=== PATIENT | female | born 1930 | race Caucasian/White ===

== ENCOUNTER 2017-03-17 16:21 | Inpatient (IN) | payer OTHER ==
--- NOTE | ~2017-03-17 | DS ---
Discharge Summary [facility] [address] [facility] [place]. [address] NAME: RUBY RIOS : [birth year] STATUS : DIS IN PAT#: [id number] AGE: 86 ADM/REG DATE : 03/18/17 MR#: [id number] REPORT SERV DATE: 03/28/17 DICTATED BY: MAHAD RUSSELL DATE: 03/27/17 REPORT STATUS : Draft TRANSCRIBED BY: MODL DATE: 03/27/17 ADMISSION DATE: 03/18/2017 DISCHARGE DATE: 03/26/2017 DISCHARGE DIAGNOSES: 1. Severe sepsis, present on admission with lactic acidosis. Source of infection is unclear. 2. 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 3. Gallstones with negative HIDA scan. 4. Volume overload. 5. Acute kidney injury. 6. Failure to thrive. CONSULTANTS: 1. Dr. Michael Briceno of Gastroenterology. 2. Dr. Jose Mariscal of Cardiology. 3. Dr. Brandyn Hernandez, of General Surgery. 4. Dr. Nathan Schmidt, Vascular Surgery. PROCEDURES: Colonoscopy with biopsy performed on 03/20/2017. HOSPITAL COURSE: This is an 86-year-old lady who was initially admitted to the hospital with diagnosis of severe sepsis, abdominal pain, nausea, and vomiting. For details, please refer to excellent H and P by Dr. Jose Quach. In summary, the patient was admitted and was started on broad-spectrum IV antibiotics along with aggressive IV fluid resuscitation. The patient actually decompensated the first two days of hospital stay and necessitated intensive care unit stay for close monitoring. The patient also had developed GI bleed and for which patient underwent a colonoscopy. Colonoscopy showed findings consistent with ischemic colitis which was biopsy-proven. Also during her hospital stay, the patient developed what appeared to be an aberrant rhythm consistent with atrial fibrillation for which Cardiology was consulted. Unfortunately, the aberrant rhythm was never confirmed with an EKG and the patient was not ruled in for an atrial fibrillation. With aggressive IV fluid resuscitation and IV antibiotic therapy, the patient improved clinically. The patient never required any pressors or blood transfusions. The patient simply stayed in the ICU for couple of days for a close monitoring. Once the patient was out on the floor, the patient was worked up for mesenteric ischemia. The patient had an MRA of the abdomen as well as Doppler ultrasound studies on two different occasions which were both negative. The patient was still complaining of abdominal pain which was likely related to ischemic colitis. However, given the patient's initial presentation of sepsis without clear source of infection, it was felt that further investigation was warranted. The patient was found to have gallstones on one of the CT scans, thus the patient was worked up for possible gallbladder pathology. General Surgery was involved and the patient underwent HIDA scan, which was actually quite benign. At that point in time, the patient had spent about a week in the hospital with broad-spectrum antibiotics and the patient remained afebrile, hemodynamically stable, and patient's white blood cell count has remained controlled between 10 and 14. The patient's procalcitonin level also remained negative and thus broad-spectrum Discharge Summary [address] [place]. [address] NAME: RUBY RIOS : [birth year] STATUS : DIS IN PAT#: [id number] AGE: 86 ADM/REG DATE : 03/18/17 MR#: [id number] REPORT SERV DATE: 03/28/17 DICTATED BY: MAHAD RUSSELL DATE: 03/27/17 REPORT STATUS : Draft TRANSCRIBED BY: EVANS DATE: 03/27/17 antibiotic was discontinued, and the patient remained stable. Of note, the patient was worked up and ruled out for chest pneumonia as well as urinary tract infection early on during the hospital stay. General surgery suggested getting faster surgery consultation to see if the patient needs any further vascular intervention given ischemic colitis even though it may have been simply related to hypotension and dehydration that the patient initially presented with. The patient was indeed seen by Vascular Surgery who agreed and noted that she did not need any further vascular surgical intervention at this point in time. At that point in time, it was felt that the patient was stable for discharge with close outpatient followup. It was noted that the patient has actually been declining over the past few months at home even prior to admission with her advanced age. The patient was seen by Physical Therapy, who recommended the patient be discharged to a correction facility. The patient is now being discharged to [facility] to continue rehab as an outpatient. Of note, on the day of discharge, the patient was on 2 L of oxygen with stable hemodynamics. The patient's labs including CBC and BMP were completely within normal limits except for a white blood cell count of 14,000. Procalcitonin level was also negative and urinalysis was repeated and negative. The patient has been slightly volume overloaded due to aggressive fluid resuscitation towards the beginning of the hospital stay, from which the patient is diuresing well from, and the patient will continue the remainder of diuresis at [facility]. Otherwise, the patient does not have any further ongoing issues. DISPOSITION: [facility]. FOLLOWUP: 1. Please follow up with PCP in the next two to four weeks. 2. Please follow up with GI in the next two to four weeks. A total of 40 minutes spent in coordinating this patient's discharge today. DICTATED BY: Mahad Russell MD YSC/MODL Mahad Russell MD / [id number] CC: MD Óscar Germain M.D.
--- NOTE | ~2017-03-17 | CN ---
Consultation Report [facility] [address] [facility] [place] [address] NAME: RUBY RIOS : [birth year] STATUS : ADM IN PAT#: [id number] AGE: 86 ADM/REG DATE : 03/18/17 MR#: [id number] REPORT SERV DATE: 03/18/17 DICTATED BY: PEBBLES BRICENO DATE: 03/18/17 REPORT STATUS : Draft TRANSCRIBED BY: MODL DATE: 03/18/17 GI CONSULTATION DATE OF CONSULTATION: 03/18/2017 Consult was called in earlier to Dr. Michelle, who came and saw the patient and then a consult was written to my group because the patient was seen by Dr. Beatty in the past. A consult was then called into us and I got a notification at 1:19 p.m. hours that is 1319 hours. It was called in as abdominal pain and GI bleed. Nobody communicated to me about when to see the patient. I finished my work in the hospital and came by to see the patient and she appears very tachycardic at this point. She does appear pale. I have reviewed her records and her hemoglobin which was 16.5 yesterday at 1300 hours was 11.4 at 4:38 this morning and 9.1 at 12 noon. I promptly went to see the patient and the nurse told me that the patient has had five black, tarry stools. The patient definitely appears tachycardic. Reviewing the records, it also indicates that this is an upper GI bleed, as the BUN, which was 17 yesterday, is up to 30 today. I promptly talked to Dr. Cutler, who is the hospitalist on the case and explained that this most likely is a serious case of upper GI bleed and that the patient needs to be transferred to the ICU as soon as possible and to transfuse 2 units of packed cells. Yesterday's admitting notes mention the patient being in her usual state of health until the evening before the admission and then having right lower quadrant pain, developed abdominal pain with multiple episodes of projectile vomiting that originally was brownish in color, then it became green, but denied any coffee-grounds emesis or blood in the vomit. The patient was reported to have some loose stool. I have talked to the , who tells me that the patient was at [facility] about three to four weeks ago and had a bleeding ulcer, hence a clip was applied there. CT scan of the abdomen and pelvis done showed gallstones without cholecystitis. An ultrasound also shows gallstones without cholecystitis. Initially, the main concern was sepsis because of the high white count and elevated lactate. The lactate on admission was 6.8 and it is down to 1.7 at this point. MEDICAL HISTORY: Dementia, hypothyroidism, CVA, anxiety, and depression. PAST SURGICAL HISTORY: Includes multiple back surgeries, hysterectomy, appendectomy, and tonsillectomy. HOME MEDICINES: Include aspirin, Plavix, Aricept, Cymbalta, Neurontin, Synthroid, vitamin D, and vitamin C. PHYSICAL EXAMINATION: GENERAL: She is a pale-appearing alert and oriented lady, tachycardic and somewhat tachypneic. Consultation Report [address] [place]. [address] NAME: RUBY RIOS : [birth year] STATUS : ADM IN [facility]#: [id number] AGE: 86 ADM/REG DATE : 03/18/17 MR#: [id number] REPORT SERV DATE: 03/18/17 DICTATED BY: PEBBLES BRICENO DATE: 03/18/17 REPORT STATUS : Draft TRANSCRIBED BY: EVANS DATE: 03/18/17 ABDOMEN: Absolutely soft, nondistended, and nontender, and there are good bowel sounds. LUNGS: Normal. CVS: Normal. IMPRESSION: Appears to be a case of upper gastrointestinal bleed in a patient with questionable peptic ulcer disease in the past. The significant drop in H and H along with the elevated BUN all point in the direction of upper gastrointestinal bleed. The patient's condition is guarded at this point. Discussed with Dr. Cutler that the patient will need to be transferred to the ICU, the patient needs to get 2 units of packed cells NASH and put on a Protonix drip and we will follow. Concerns also addressed and discussed with the patient and . KOKI/EVANS Michael Briceno M.D. / [id number] CC: Wilton Gamino M.D. Estelle Reed MD
--- NOTE | ~2017-03-17 | HP ---
History And Physical [place] [id number] [place]. [address] NAME: RUBY RIOS : [birth year] STATUS : ADM IN [facility]#: [id number] AGE: 86 ADM/REG DATE : 03/17/17 MR#: [id number] REPORT SERV DATE: 03/18/17 DICTATED BY: SANDRA CHUN DATE: 03/17/17 REPORT STATUS : Draft TRANSCRIBED BY: MODL DATE: 03/17/17 DATE OF ADMISSION: 03/17/2017 POINT OF ENTRY: [facility] Emergency Department. CHIEF COMPLAINT: Abdominal pain, nausea, and vomiting. HISTORY OF PRESENT ILLNESS: Ms. Rios is an 86-year-old female with a history of prior cerebrovascular accidents as well as hypothyroidism, who presents to the emergency department with a one-day history of acute onset of abdominal pain with associated nausea and vomiting. The patient states that she was in her usual state of health until yesterday evening when she developed diffuse abdominal pain described as sharp and stabby in nature. When queried specifically, she reports that it is worse in the right lower quadrant. Shortly after development of the abdominal pain, she started to develop multiple episodes of projectile vomiting that originally was brownish in color and then it became green, but denied any coffee-grounds emesis or blood in the vomit. The patient denies any fevers, night sweats, or chills. Did have one loose stool this morning, but would not call it diarrhea. She denies any chest pain, shortness of breath, cough, sputum production, melena, hematochezia, hemoptysis, hematemesis, dysuria, lower extremity edema. Denies any recent sick contacts. Initial evaluation in the emergency department is notable for an initial heart rate of 123 with respirations of 24. She was afebrile. [place] [address]. Lactic acid level of 6.8. Search for infectious etiology was unremarkable. Chest x-ray was clear. Urinalysis was negative for infection. CT of the abdomen and pelvis showed gallstones, but no evidence of cholecystitis and a fluid distended stomach, but no evidence of any small bowel obstruction. She was started on empiric IV fluids and antibiotics, and admitted to the Hospitalist Service. The patient does report she had a recent upper endoscopy at [facility] in October for some abdominal pain, and was told that she had a polyp, which was removed, that was reported noncancerous as well as either had some gastrointestinal bleeding either prior to the endoscopy or as documented on the endoscopy. Detailed results of endoscopy are unclear at this time. PREVIOUS MEDICAL HISTORY: 1. Hypothyroidism. 2. Dementia. 3. Cerebrovascular accident. 4. Anxiety and depression. SURGICAL HISTORY: History And Physical [address] [address] NAME: RUBY RIOS : [birth year] STATUS : ADM IN [facility]#: [id number] AGE: 86 ADM/REG DATE : 03/17/17 MR#: [id number] REPORT SERV DATE: 03/18/17 DICTATED BY: SANDRA CHUN DATE: 03/17/17 REPORT STATUS : Draft TRANSCRIBED BY: EVANS DATE: 03/17/17 1. Multiple back surgeries. 2. Abdominal hysterectomy. 3. Appendectomy. 4. Tonsillectomy. ALLERGIES: SULFA DRUGS. HOME MEDICATIONS: 1. Vitamin C 1000 mg daily. 2. Aspirin 81 mg daily. 3. Plavix 75 mg daily. 4. Aricept 10 mg daily. 5. Cymbalta 60 mg daily. 6. Neurontin 600 mg daily. 7. Levothyroxine 125 mcg daily. 8. Vitamin D3 one tab daily. SOCIAL HISTORY: Denies any tobacco, alcohol, or illicits. Is . FAMILY MEDICAL HISTORY: Mother of old age in her mid 90s, father with non-Hodgkin's lymphoma. She is an only child. LABORATORY [place] [address], hemoglobin 16.5, hematocrit 49.7, and platelet count is 324. INR 1.0. 2. Sodium is 142, potassium 4.4, chloride 103, carbon dioxide 26, BUN 17, creatinine 1.41, glucose is 248, calcium is 9.8, protein is 7.8, albumin is 4.4, bilirubin is 0.8, ALT is 14, AST 13, alkaline phosphatase is 122. 3. Lipase is 155. 4. Lactic acid 6.8. 5. Procalcitonin is negative. 6. Urinalysis, specific gravity was 1.026 cloudy with 13 red blood cells with 4 white blood cells with no evidence of any infection. 7. Chest x-ray shows no acute cardiopulmonary abnormality. 8. EKG per my review shows sinus tachycardia, heart rate of 119. No evidence of any acute ischemia or infarction. 9. CT scan of the abdomen and pelvis shows gallstones without evidence of cholecystitis as well as extensive abdominal aortic calcifications and a fluid distended stomach, but no evidence of any small bowel obstruction. PHYSICAL EXAMINATION: VITAL SIGNS: Temperature is 98.3 degrees Fahrenheit, pulse is 123, respirations 24, saturating 93% on room air, blood pressure 194/84. On recheck, she now has blood pressure 189/59, pulse of 112. GENERAL: The patient is awake, alert, in no acute distress, resting comfortably in bed. She is a well-developed, well-nourished elderly female. is at bedside. Nontoxic appearing. History And Physical [address] [address] NAME: RUBY RIOS : [birth year] STATUS : ADM IN [facility]#: [id number] AGE: 86 ADM/REG DATE : 03/17/17 MR#: [id number] REPORT SERV DATE: 03/18/17 DICTATED BY: SANDRA CHUN DATE: 03/17/17 REPORT STATUS : Draft TRANSCRIBED BY: EVANS DATE: 03/17/17 HEENT: Atraumatic and normocephalic. Moist mucous membranes. Pupils are equal, round, reactive to light and accommodation. Extraocular eye movements intact. No scleral icterus. NECK: No jugular venous distention. No carotid bruits. CARDIAC: Tachycardic rate, regular rhythm. No murmurs, rubs, or gallops. Normal S1, S2. LUNGS: Clear to auscultation bilaterally. No wheezes, rhonchi, or crackles. ABDOMEN: Soft, hypoactive bowel sounds throughout. She is diffusely tender to palpation in all quadrants more so in the right lower quadrant as well as right upper quadrant, but negative Buckley sign and no rebound, guarding, or rigidity. EXTREMITIES: Warm and well perfused. No cyanosis, clubbing, or edema. SKIN: Warm and dry. PSYCH: Affect appropriate. NEURO: Alert and oriented x3. Cranial nerves 2 through 12 grossly intact. Speech is normal. Gait not assessed. ASSESSMENT AND PLAN: Ms. Rios is an 86-year-old female, who presents with the acute onset of diffuse abdominal pain associated with nausea and vomiting, and found to have evidence of severe sepsis of unclear etiology. PROBLEM LIST: 1. Severe sepsis. 2. Acute kidney injury. 3. Abdominal pain with nausea and vomiting. 4. Hyperglycemia. 5. Cholelithiasis. PLAN: 1. Severe sepsis. The patient meets criteria with leukocytosis, tachycardia, tachypnea, as well as elevated lactic acid level and evidence of acute kidney injury. Source is unclear at this time, as chest x-ray, urinalysis, CT of the abdomen and pelvis were all unremarkable. There is also accompanied note that procalcitonin is also negative. We will follow up blood cultures. We will place the patient empirically on broad-spectrum IV antibiotics as well as aggressive IV fluid hydration of 30 mL/kg given the patient's elevated lactic acid level. Repeat lactic acid level will be pending. Given evidence of cholelithiasis as well as abdominal pain, nausea, and vomiting, we will check an abdominal ultrasound in the morning to definitively rule out cholecystitis. 2. Acute kidney injury. Aggressive IV fluid hydration. 3. Abdominal pain, nausea, and vomiting. Unclear etiology at this time. A CT of the abdomen and pelvis was unremarkable; however, that is without IV contrast. We will check an abdominal ultrasound in the morning. The patient does not have any history of mesenteric ischemia; however, she does have a history of stroke and extensive abdominal calcifications. We will order a mesenteric arterial Doppler. Place the patient empirically on some Protonix IV b.i.d. given reports of endoscopy showing some GI bleeding back in October as well as we will try to obtain those records from [facility]. Should the patient's abdominal pain continue, may need to consult Gastroenterology. 4. Hyperglycemia, unclear at this time, may be related to underlying sepsis. Place her on some low-dose sliding scale insulin as well as check hemoglobin A1c. History And Physical [address] [place]. [address] NAME: RUBY RIOS : [birth year] STATUS : ADM IN [facility]#: [id number] AGE: 86 ADM/REG DATE : 03/17/17 MR#: [id number] REPORT SERV DATE: 03/18/17 DICTATED BY: SANDRA CHUN DATE: 05/31/17 REPORT STATUS : Draft TRANSCRIBED BY: EVANS DATE: 03/17/17 5. DVT prophylaxis. Lovenox subcu. CODE STATUS: The patient wished to be full code. JCElyssa/EVANS Sandra Chun MD / [id number] CC: Estelle Patel M.D.
--- NOTE | ~2017-03-17 | OP ---
Record Of [address] [place]. [address] NAME: RUBY RIOS : [birth year] STATUS : ADM IN [facility]#: [id number] AGE: 86 ADM/REG DATE : 03/18/17 MR#: [id number] REPORT SERV DATE: 03/20/17 DICTATED BY: LYNDON JENNINGS DATE: 03/20/17 REPORT STATUS : Draft TRANSCRIBED BY: MODL DATE: 03/20/17 DATE OF PROCEDURE: 03/20/2017 PROCEDURE: Colonoscopy with biopsy. INDICATIONS: Melena. MEDICATIONS: As per Anesthesia. CONSENT: Informed consent was obtained from the patient and her family by me prior to the procedure. Risks, benefits, and alternatives were discussed including the risk of bleeding, perforation, infection, reaction to medicine, and cardiopulmonary complications. DESCRIPTION OF PROCEDURE: After the patient was adequately sedated and placed in her left lateral decubitus position, the pediatric colonoscope was passed into the rectum and advanced under direct visualization to the cecum without difficulty. Cecal landmarks were identified and included the ileocecal valve and appendiceal orifice. The base of the cecum was well visualized. The endoscope was withdrawn with careful examination of mucosa throughout the colon including retroflexion in the rectum and careful inspection around flexures and tip deflection behind folds. Prep was adequate. The patient tolerated the procedure well. FINDINGS: 1. Small linear superficial ulcerations with surrounding erythema, patchy located within transverse and descending colon. Multiple biopsies obtained. Overall, very mild. 2. Green contents throughout, no active bleeding, and no evidence for recent bleeding. RECOMMENDATIONS: 1. Follow up biopsies. 2. Continue Protonix. 3. Monitor hematocrit and transfuse as necessary. 4. MRA of the abdomen to look for stenosis and/or clot within SMA given recent endoscopic findings and clinical presentation including recent atrial fibrillation. CC/EVANS Lyndon Jennings M.D. / [id number] CC: Estelle Patel M.D. Record Of [address] [place]. [address] NAME: RUBY RIOS : [birth year] STATUS : ADM IN PAT#: [id number] AGE: 86 ADM/REG DATE : 03/18/17 MR#: [id number] REPORT SERV DATE: 03/20/17 DICTATED BY: LYNDON JENNINGS DATE: 03/20/17 REPORT STATUS : Draft TRANSCRIBED BY: MODL DATE: 03/20/17 Randy Beatty M.D.
--- NOTE | ~2017-03-17 | CN ---
Consultation Report [facility] [address] [place]. [address] NAME: RUBY RIOS : [birth year] STATUS : ADM IN PAT#: [id number] AGE: 86 ADM/REG DATE : 03/18/17 MR#: [id number] REPORT SERV DATE: 03/19/17 DICTATED BY: SANDRA MARISCAL JR. DATE: 03/19/17 REPORT STATUS : Draft TRANSCRIBED BY: MODL DATE: 03/19/17 CARDIOLOGY CONSULTATION DATE OF CONSULTATION: 03/19/2017 REASON FOR CONSULTATION: Regarding possible atrial fibrillation. HISTORY OF PRESENT ILLNESS: 86-year-old acutely ill white female is in the medical intensive care unit after a significant GI bleed. Elevated lactates; white count 23,000; hemoglobin currently 9.5. She reported to [facility] Emergency Room with abdominal pain and projectile vomiting. She had an endoscopy at [facility] in the recent past and apparently, a polyp was treated. She is still having abdominal pain in the mid abdominal region. Vital signs are more stable now. There is no previous cardiovascular history. Initially, with pain and stress of the GI bleed, she had a regular supraventricular tachycardia at rate of 200, adenosine was given and converted the rhythm to sinus tachycardia with low-amplitude P-waves as well as multiple PACs. Definite atrial fibrillation cannot be confirmed. Other pertinent laboratory studies include a low magnesium at 1.6, a potassium of 4.3, BUN and creatinine up from 30 and 1.2 on admission to 47 and 0.9 currently. Hemoglobin dropped as low as 6.6 and is now 9.5. Initial troponin less than 0.02 and currently reported as 0.4, etc. She is not having chest pain, and this is likely secondary to previous tachycardia. ALLERGIES: TO SULFA AND STEROIDS. HOME MEDICATIONS: Include clopidogrel and aspirin with history of previous CVA. Other medications are noted. SOCIAL HISTORY: . Lives in her own home. Remote history of smoking. No alcohol. FAMILY HISTORY: Negative for premature coronary disease, mother had "heart problem." DATA: A 12/17/2014 stress nuclear study found and showed ejection fraction greater than 60% with no evidence of myocardial ischemia. Bedside echo grossly normal, report pending. PHYSICAL EXAMINATION: GENERAL: Elderly white female, currently with abdominal pain. VITAL SIGNS: Blood pressure 124/50. Pulse has ranged from 106 to 138 lately. Currently, Consultation Report [facility] [address] [place]. [address] NAME: RUBY RIOS : [birth year] STATUS : ADM IN PAT#: [id number] AGE: 86 ADM/REG DATE : 03/18/17 MR#: [id number] REPORT SERV DATE: 03/19/17 DICTATED BY: SANDRA MARISCAL JR. DATE: 03/19/17 REPORT STATUS : Draft TRANSCRIBED BY: EVANS DATE: 03/19/17 heart rate in the 80s with multiple PACs. Room air saturation 93%. HEENT: No xanthelasma. NECK: No JVD at 30 degrees. No thyromegaly, no carotid bruit. LUNGS: Clear to auscultation and percussion. COR: No thrills, heaves. Normal S1, S2. No gallop. No rub. No murmur. ABD: Mid abdominal palpable abdominal pain. EXT: Without edema or pulse deficit. MS: Back without spine or costovertebral angle tenderness. NEURO: Symmetric findings. DISCUSSION: Regular supraventricular tachycardia at rate of 200, which converted to sinus tachycardia with multiple premature atrial contractions after adenosine injection. Currently, she is in sinus rhythm with multiple premature atrial contractions. Atrial fibrillation cannot be confirmed at this point. Previously normal ejection fraction on noninvasive testing. No previous cardiac history. Amiodarone orders have already been left, and GI is waiting on a stable rhythm before performing de paz-endoscopy today. She is n.p.o. We will give her a slow loading dose of amiodarone in short-term infusion, correct electrolytes, stabilize hemodynamically. When she is more stable hemodynamically, consider switching amiodarone to a low-dose beta-simi as tolerated. Thank you for this consultation. FAY/EVANS Sandra Mariscal Jr., M.D. / [id number] CC: Estelle Patel M.D.
--- NOTE | ~2017-03-17 | EGD ---
EGD REPORT [facility] [address] [address] NAME: RUBY RIOS : [birth year] STATUS : ADM IN PAT#: [id number] AGE: 86 ADM/REG DATE : 03/18/17 MR#: [id number] REPORT SERV DATE: 03/19/17 DICTATED BY: PEBBLES SCHILLING DATE: 03/19/17 REPORT STATUS : Draft TRANSCRIBED BY: [employer] DATE: 03/19/17 Endoscopy Center Patient Name: Ruby Rios Date of : 1930 Attending MD: JUAN DAIVD SCHILLING MD Procedure Date No Time: 03/19/2017 Procedure: Small bowel enteroscopy Indications: Obscure gastrointestinal bleeding Medicines: See the Anesthesia note for documentation of the administered medications Complications: No immediate complications. Estimated blood loss: None. Procedure: Pre-Anesthesia Assessment: - ASA Grade Assessment: IV - A patient with severe systemic disease that is a constant threat to life. After obtaining informed consent, the endoscope was passed under direct vision. Throughout the procedure, the patient's blood pressure, pulse, and oxygen saturations were monitored continuously. The GIF [id number] was introduced through the mouth, and advanced to the mid-jejunum. After obtaining informed consent, the endoscope was passed under direct vision. Throughout the procedure, the patient's blood pressure, pulse, and oxygen saturations were monitored continuously.The small bowel enteroscopy was accomplished without difficulty. The patient tolerated the procedure well. Findings: Many non-bleeding \F\linear\F\ jejunal ulcers with pigmented material were found at 100. The largest lesion was 4 mm in largest dimension. None of these ulcers were actively bleeding. No blood seen in the jejunal lumen There was no evidence of significant pathology in the entire examined duodenum. The esophagus was normal. The stomach was normal. Impression: - Jejunal ulcer. - Normal examined duodenum. - Normal esophagus. - Normal stomach. - Patient was initaly was having melena and then maroon blood, however no bleeding site was identified as far as I could pass the pediatric colonoscope (100 cms beyond the pylorus) OTHER - I am concerned that there is likely a small bowel EGD REPORT [address] [address] NAME: RUBY RIOS : [birth year] STATUS : ADM IN PAT#: [id number] AGE: 86 ADM/REG DATE : 03/18/17 MR#: [id number] REPORT SERV DATE: 03/19/17 DICTATED BY: PEBBLES SCHILLING DATE: 03/19/17 REPORT STATUS : Draft TRANSCRIBED BY: [employer] DATE: 03/19/17 ulcer beyond the reach of my scope that could be bleeding (BUN elevated with a normal craetinen) or this could be a colonic bleed Recommendation: - Colonoscopy for tomorrow - I have discussed findings with patient's and with Dr Lauren. Plan is to give 2 units PRBC now and keep patient stable. Prep for a colonoscopy. If needed may need to have an arteriogram tonight. I am off call now and all has been discussed also with Dr Sebastian Jennings welder explosion from now to Wednesday morning Procedure Code(s): --- Professional --- 84666, Small intestinal endoscopy, enteroscopy beyond second portion of duodenum, not including ileum; diagnostic, with or without collection of specimen(s) by brushing or washing (separate procedure) Diagnosis Code(s): --- Professional --- K28.9, Gastrojejunal ulcer, unspecified as acute or chronic, without hemorrhage or perforation K92.2, Gastrointestinal hemorrhage, unspecified CPT copyright 2013 [employer]. All rights reserved. The codes documented in this report are preliminary and upon chef de partie review may be revised to meet current compliance requirements. JUAN DAVID SCHILLING MD 03/19/2017 6:25 PM This report has been signed electronically. Number of Addenda: 0 Note Initiated On: 03/19/2017 5:11 PM [address] [address]
--- NOTE | ~2017-03-17 | CN ---
Consultation Report [facility] [address] [place]. [address] NAME: RUBY RIOS : [birth year] STATUS : ADM IN PAT#: [id number] AGE: 86 ADM/REG DATE : 03/18/17 MR#: [id number] REPORT SERV DATE: 03/26/17 DICTATED BY: NATHAN SCHMIDT DATE: 03/26/17 REPORT STATUS : Draft TRANSCRIBED BY: EVANS DATE: 03/26/17 CONSULTATION NOTE DATE OF CONSULTATION: 03/25/2017 REASON FOR CONSULTATION: Evaluation for mesenteric ischemia. BRIEF HISTORY: The patient is an 86-year-old female with past medical history significant for stroke, hypothyroidism, remote tobacco abuse, and some dementia who was admitted to the hospital with abdominal pain, nausea, and vomiting. She was found to have a gastrointestinal hemorrhage and was thought to be ischemic ulcerations. She may have had a component of ischemic colitis, with a presenting lactic acidosis and leukocytosis. She was managed medically and Dr. Sharif has been involved in her care. She has had no need for surgical intervention. In her workup, she underwent many neurovascular studies that came back unremarkable. Nonetheless, the patient's family insisted that she have vascular evaluation. The patient denies any complaints now. She has been eating better. She said that she is almost ready to leave the hospital. She denies any prior problems with eating, drinking, or with her bowel movements. She denies any postprandial abdominal pain or cramping. She denies any unintended weight loss. She has had some blood in her stool. PAST MEDICAL HISTORY: As above. PAST SURGICAL HISTORY: Includes multiple back surgeries, hysterectomy, appendectomy, tonsillectomy, rectocele and cystocele repairs. SOCIAL HISTORY: She has remote history of tobacco abuse. She denies any alcohol or drug use. She is . ALLERGIES: SULFA DRUGS. MEDICATIONS: Documented on the chart and were reviewed. FAMILY HISTORY: Noncontributory. REVIEW OF SYSTEMS: A complete review of systems was performed and is negative with the exception of the aforementioned findings. PHYSICAL EXAMINATION: VITAL SIGNS: Documented on the chart and were reviewed. GENERAL: The patient is awake, alert, oriented, in no apparent distress. HEAD AND NECK: Her head and neck examination is benign without any carotid bruits. HEART: Regular rate and rhythm. LUNGS: Clear. Consultation Report [facility] [address] [place]. [address] NAME: RUBY RIOS : [birth year] STATUS : ADM IN PAT#: [id number] AGE: 86 ADM/REG DATE : 03/18/17 MR#: [id number] REPORT SERV DATE: 03/26/17 DICTATED BY: NATHAN SCHMIDT DATE: 03/26/17 REPORT STATUS : Draft TRANSCRIBED BY: MODKaye DATE: 03/26/17 ABDOMEN: Soft, nontender, and nondistended with a nonaneurysmal aorta. She has a normal complement of upper extremity pulses without any significant edema or ischemic ulcerations. She has palpable femoral pulses. Her feet are pink and warm. She has no significant edema or ischemic ulcerations. NEUROLOGICAL: Reveals no new focal neurologic deficits. MUSCULOSKELETAL: Otherwise, benign. LABORATORY DATA: Her laboratory investigations previously demonstrated a lactic acidosis, but this has resolved. Her leukocytosis has improved to 14,000. It had normalized at one point, but has actually gone up. She had anemia earlier during her hospitalization, but this has improved. She had a mesenteric duplex that was unremarkable. She also had an MRA of her abdomen that demonstrated no significant mesenteric vascular disease. ASSESSMENT AND PLAN: It looks like this lady had dehydration and likely secondary ischemia. I do not think that she has any significant mesenteric vascular disease and needs intervention. I talked to her extensively about this. She expressed understanding. I will see her back on an as-needed basis. OUTDOOR ADVENTURE INSTRUCTOR/EVANS Nathan Schmidt M.D. / [id number] CC: MD Óscar Germain M.D.
--- NOTE | ~2017-03-17 | CN ---
Consultation Report [facility] [address] [place]. [address] NAME: RUBY RIOS : [birth year] STATUS : ADM IN [facility]#: [id number] AGE: 86 ADM/REG DATE : 03/18/17 MR#: [id number] REPORT SERV DATE: 03/23/17 DICTATED BY: JAYY SHARIF DATE: 03/22/17 REPORT STATUS : Draft TRANSCRIBED BY: MODL DATE: 03/22/17 SURGERY CONSULT NOTE DATE OF CONSULTATION: 03/22/2017 REASON FOR CONSULTATION: Abdominal pain. HISTORY OF PRESENT ILLNESS: This is an 86-year-old female who presented on 03/18/2017 with acute onset of abdominal pain, nausea, and vomiting that has been present for two days prior. The patient was severely dehydrated and appeared to be septic at this time. The patient was admitted to the hospital and started on aggressive fluid resuscitation and antibiotics. Initially during her hospital course, the patient developed worsening black melanotic stools and evidence of GI bleed. The patient received transfusions and underwent upper and lower scope which showed jejunal ulcerations consistent with ischemia and transverse and descending colon ulcerations also consistent with ischemia. The patient stayed in the Intensive Care Unit and was treated for SVT, but did well and was transferred to the floor. The patient still had persistent abdominal pain in the lower quadrants and the right upper quadrant. The patient had multiple imaging modalities including ultrasound which showed cholelithiasis, mesenteric Duplex, which showed no elevated velocities or stenosis within the SMA, DAVID, or celiac, and MRA which showed patent mesenteric vessels and no other intraabdominal pathology. CT scan was negative for any pathology except for cholelithiasis. On admission, the patient's white blood cell count was 25,000, now it is normalized to below 10. Her hematocrit is stabilized. The patient reports having severe abdominal pain for the past couple of months and had been to the hospital multiple times for this. Workup thus far has been negative for an acute problem that is causing the ischemic jejunum or ischemic colon. Echocardiogram was also performed that showed no intracardiac clot suggestive of embolic disease. PAST MEDICAL HISTORY: Hypertension, chronic back pain. PAST SURGICAL HISTORY: Hysterectomy, appendectomy, multiple spinal surgeries. FAMILY HISTORY: Noncontributory. SOCIAL HISTORY: Denies. REVIEW OF SYSTEMS: A 10-point review of systems is done, negative except for as mentioned in the HPI. PHYSICAL EXAMINATION: VITAL SIGNS: The patient is afebrile. Vital signs stable. GENERAL: Alert, oriented x3, no acute distress. NECK: Supple. No lymphadenopathy. LUNGS: Clear. CARDIAC: Regular rate and rhythm. Consultation Report [place] [address] [address] NAME: RUBY RIOS : [birth year] STATUS : ADM IN PAT#: [id number] AGE: 86 ADM/REG DATE : 03/18/17 MR#: [id number] REPORT SERV DATE: 03/23/17 DICTATED BY: JAYY SHARIF DATE: 03/22/17 REPORT STATUS : Draft TRANSCRIBED BY: MODKaye DATE: 03/22/17 ABDOMEN: Tender left lower quadrant, tender right lower quadrant, mild tenderness right upper quadrant. No rebound tenderness in any quadrant. No peritoneal signs. EXTREMITIES: Mild edema. ASSESSMENT: An 86-year-old female with persistent abdominal pain with a history of postprandial abdominal pain, nausea, vomiting. PLAN: 1. We will obtain HIDA scan to further evaluate gallbladder, but in the setting of cholelithiasis may not be indicative of disease process. 2. If abdominal pain continues to persist, further evaluation with mesenteric Duplex with postprandial mesenteric artery velocities since this is not obtained on initial mesenteric Duplex. I appreciate the consultation. We will follow. DICTATED BY: Melo Siddiqi MD CB/EVANS Jayy Sharif M.D. / [id number] CC: Estelle Rodríguez M.D.
[2017-03-17 15:19] LABS: BASOPHILS 0.1 %; BASOPHILS ABSOLUTE 0.02 10/3/uL (0.0-0.16); EOSINOPHILS 0 %; EOSINOPHILS ABSOLUTE 0.01 10/3/uL (0.0-0.53); HEMOGLOBIN 16.5 g/dL (12.0-16.0); IMMATURE GRANULOCYTES 0.4 %; IMMATURE GRANULOCYTES ABSOLUTE 0.09 10/3/uL (0.0-0.11); LYMPHOCYTES 11.9 %; MEAN CORPUS HGB CONC 33.2 g/dL (32.0-36.0); MEAN CORPUSCULAR HEMOGLOB 29.3 pg (26.0-34.0); MEAN CORPUSCULAR VOLUME 88.1 fL (80-100); MEAN PLATELET VOLUME 11.4 fL (9.2-13.0); MONOCYTES 4.6 %; MONOCYTES ABSOLUTE 1.16 10/3/uL (0.21-1.20); NEUTROPHILS ABSOLUTE 20.85 10/3/uL (2.02-8.40); RBC DISTRIBUTION WIDTH 15.3 % (12.0-16.0); RED CELL COUNT 5.64 10/6/uL (4.0-5.6)
[2017-03-17 15:21] LABS: ER CBC TAT 0 Hrs 08 Mins; HEMATOCRIT 49.7 % (36.0-48.0); PLATELET COUNT 324 10/3/uL (150-400); WHITE BLOOD CELLS 25.1 10/3/uL (4.5-10.5)
[2017-03-17 15:24] LABS: MANUAL DIFF NO %
[2017-03-17 15:27] LABS: PARTIAL THROMBO TIME 24.3 SEC (22.5-37.2); PROTIME (NOT ORD) 13.2 SEC (12.0-14.5)
[2017-03-17 15:36] LABS: A/G RATIO 1.3 (0.7-1.9); ALBUMIN 4.6 G/DL (3.5-5.0); ALKALINE PHOSPHATASE 124 U/L (45-117); BUN (BLOOD UREA NITROGEN) 17 MG/DL (6-23); CALCIUM, SERUM 9.8 MG/DL (8.5-10.4); CHLORIDE, SERUM 103 MMOL/L (96-112); CO2 (CARBON DIOXIDE) 26 MMOL/L (24-34); CREATININE 1.41 MG/DL (0.55-1.02); GFR AFRICAN AMERICAN 38 ML/MIN (>=60); GFR NON AFRICAN AMERICAN 33 ML/MIN (>=60); GLOBULIN 3.5 G/DL (2.5-4.1); GLUCOSE, SERUM 248 MG/DL (60-99); POTASSIUM, SERUM 4.4 MMOL/L (3.5-5.3); SGOT(AST) 14 U/L (5-40); SGPT(ALT) 13 U/L (5-65); SODIUM, SERUM 142 MMOL/L (135-148); TOTAL BILIRUBIN 0.6 MG/DL (0-1.2); TOTAL PROTEIN 8.1 G/DL (6.0-8.5)
[2017-03-17 15:38] LABS: LACTATE 6.8 MMOL/L (0.3-2.4)
[2017-03-17 16:08] LABS: ER DIFF TAT 0 Hrs 55 Mins; LYMPHOCYTES 15 %; LYMPHOCYTES ABSOLUTE (CALC) 3.77 10/3/uL (0.67-4.30); MONOCYTES 2 %; NEUTROPHILS ABSOLUTE (CALC) 20.83 10/3/uL (2.02-8.40); PLATELET ESTIMATE ADQ (ADEQUATE); RBC MORPHOLOGY NORM (NORMAL); SEGMENTED NEUTROPHIL (0) 83 %; TOTAL NUCLEATED CELLS 100
[~2017-03-17 16:21] MED LIST: ARICEPT10 PO; ASAB PO; CYANO1000T PO; CYMBALTA60 PO; METHOC500B PO; NEUR600 PO; PCET PO; PLAVIX PO; PREM625 PO; SENTAB PO; SYN125 PO; VIT B-SIX 50 MG50 MG SL; VITAMIN D3 PO; VITC500 PO; VITE1000 PO
[2017-03-17 16:36] LABS: ALBUMIN 4.4 G/DL (3.5-5.0); ALKALINE PHOSPHATASE 122 U/L (45-117); DIRECT BILIRUBIN 0.1 MG/DL (0.0-0.4); INDIRECT BILIRUBIN(NOT ORDER) 0.7 MG/DL (0.1-0.9); SGOT(AST) 13 U/L (5-40); SGPT(ALT) 14 U/L (5-65); TOTAL BILIRUBIN 0.8 MG/DL (0-1.2); TOTAL PROTEIN 7.8 G/DL (6.0-8.5)
[2017-03-17 17:19] LABS: PROCALCITONIN < 0.05 ng/mL (<0.5)
[2017-03-17 18:50] LABS: ASCORBIC ACID (UR NOT ORDER) NEG (NEG); BILIRUBIN, URINE NEGATIVE (NEG); ER URINALYSIS TAT 0 Hrs 11 Mins; KETONE, URINE 20 MG/DL (NEG); LEUKOCYTE ESTERASE(NOT OR NEG (NEG); NITRITE (URINE) NEG (NEG); WBC (NOT ORDERED) (RFLEX) 4 (0-5)
[2017-03-17 23:03] LABS: FREE T4 1.22 NG/DL (0.76-1.46); ULTRASENSITIVE TSH 0.715 MCIU/ML (0.358-3.740)
[2017-03-18 04:48] LABS: BASOPHILS 0.1 %; BASOPHILS ABSOLUTE 0.03 10/3/uL (0.0-0.16); EOSINOPHILS 0 %; EOSINOPHILS ABSOLUTE 0.01 10/3/uL (0.0-0.53); IMMATURE GRANULOCYTES 0.5 %; IMMATURE GRANULOCYTES ABSOLUTE 0.12 10/3/uL (0.0-0.11); LYMPHOCYTES 17.1 %; LYMPHOCYTES ABSOLUTE 3.95 10/3/uL (0.67-4.30); MEAN CORPUS HGB CONC 32.2 g/dL (32.0-36.0); MEAN CORPUSCULAR HEMOGLOB 28.8 pg (26.0-34.0); MEAN CORPUSCULAR VOLUME 89.4 fL (80-100); MEAN PLATELET VOLUME 11.8 fL (9.2-13.0); MONOCYTES ABSOLUTE 2.53 10/3/uL (0.21-1.20); NEUTROPHILS 71.3 %; NEUTROPHILS ABSOLUTE 16.41 10/3/uL (2.02-8.40); PLATELET COUNT 286 10/3/uL (150-400); RBC DISTRIBUTION WIDTH 15.5 % (12.0-16.0); WHITE BLOOD CELLS 23.1 10/3/uL (4.5-10.5)
[2017-03-18 05:02] LABS: CHLORIDE, SERUM 112 MMOL/L (96-112); CO2 (CARBON DIOXIDE) 22 MMOL/L (24-34); CREATININE 1.17 MG/DL (0.55-1.02); GFR AFRICAN AMERICAN 48 ML/MIN (>=60); GFR NON AFRICAN AMERICAN 42 ML/MIN (>=60); POTASSIUM, SERUM 4.9 MMOL/L (3.5-5.3); SODIUM, SERUM 146 MMOL/L (135-148)
[2017-03-18 05:03] LABS: BUN (BLOOD UREA NITROGEN) 30 MG/DL (6-23); CALCIUM, SERUM 7.8 MG/DL (8.5-10.4); GLUCOSE, SERUM 171 MG/DL (60-99)
[2017-03-18 05:12] LABS: HEMATOCRIT 35.4 % (36.0-48.0); HEMOGLOBIN 11.4 g/dL (12.0-16.0); RED CELL COUNT 3.96 10/6/uL (4.0-5.6)
[2017-03-18 05:13] LABS: MANUAL DIFF NO %
[2017-03-18 12:19] LABS: HEMATOCRIT 29.2 % (36.0-48.0); HEMOGLOBIN 9.1 g/dL (12.0-16.0)
[2017-03-18 18:52] LABS: MEAN CORPUS HGB CONC 32.5 g/dL (32.0-36.0); MEAN CORPUSCULAR HEMOGLOB 28.9 pg (26.0-34.0); MEAN PLATELET VOLUME 11.2 fL (9.2-13.0); PLATELET COUNT 231 10/3/uL (150-400); RBC DISTRIBUTION WIDTH 15.8 % (12.0-16.0)
[2017-03-18 18:59] LABS: HEMATOCRIT 20.3 % (36.0-48.0); HEMOGLOBIN 6.6 g/dL (12.0-16.0); RED CELL COUNT 2.28 10/6/uL (4.0-5.6); WHITE BLOOD CELLS 25.3 10/3/uL (4.5-10.5)
[2017-03-18 19:01] LABS: MANUAL DIFF YES %
[2017-03-18 19:03] LABS: CHLORIDE, SERUM 111 MMOL/L (96-112); CO2 (CARBON DIOXIDE) 21 MMOL/L (24-34); CREATININE 1.22 MG/DL (0.55-1.02); GFR AFRICAN AMERICAN 46 ML/MIN (>=60); GFR NON AFRICAN AMERICAN 40 ML/MIN (>=60); GLUCOSE, SERUM 169 MG/DL (60-99); POTASSIUM, SERUM 4.5 MMOL/L (3.5-5.3); SODIUM, SERUM 143 MMOL/L (135-148)
[2017-03-18 19:04] LABS: BUN (BLOOD UREA NITROGEN) 46 MG/DL (6-23)
[2017-03-18 19:23] LABS: INTERNATIONAL NORMAL RATI 1.4 UNITS (-)
[2017-03-18 19:24] LABS: PROTIME (NOT ORD) 16.9 SEC (12.0-14.5)
[2017-03-18 19:29] LABS: BAND NEUTROPHILS 4 %; LYMPHOCYTES 21 %; LYMPHOCYTES ABSOLUTE (CALC) 5.31 10/3/uL (0.67-4.30); MONOCYTES 3 %; MONOCYTES ABSOLUTE (CALC) 0.76 10/3/uL (0.21-1.20); NEUTROPHILS ABSOLUTE (CALC) 19.23 10/3/uL (2.02-8.40); OVALOCYTES 1+ (3-10/OIF) (0-2/OIF); PLATELET ESTIMATE ADQ (ADEQUATE); SEGMENTED NEUTROPHIL (0) 72 %; TOTAL NUCLEATED CELLS 100
[2017-03-19 06:24] LABS: INTERNATIONAL NORMAL RATI 1.3 UNITS (-); PARTIAL THROMBO TIME 32.6 SEC (22.5-37.2); PROTIME (NOT ORD) 15.9 SEC (12.0-14.5)
[2017-03-19 06:30] LABS: BUN (BLOOD UREA NITROGEN) 47 MG/DL (6-23); CALCIUM, SERUM 7.4 MG/DL (8.5-10.4); CHLORIDE, SERUM 113 MMOL/L (96-112); CREATININE 0.92 MG/DL (0.55-1.02); GFR AFRICAN AMERICAN 64 ML/MIN (>=60); GFR NON AFRICAN AMERICAN 56 ML/MIN (>=60); POTASSIUM, SERUM 4.3 MMOL/L (3.5-5.3); SODIUM, SERUM 146 MMOL/L (135-148)
[2017-03-19 06:31] LABS: CO2 (CARBON DIOXIDE) 26 MMOL/L (24-34); GLUCOSE, SERUM 128 MG/DL (60-99)
[2017-03-19 06:37] LABS: BASOPHILS 0.1 %; BASOPHILS ABSOLUTE 0.03 10/3/uL (0.0-0.16); EOSINOPHILS 0 %; EOSINOPHILS ABSOLUTE 0.01 10/3/uL (0.0-0.53); HEMATOCRIT 26.9 % (36.0-48.0); HEMOGLOBIN 9.5 g/dL (12.0-16.0); IMMATURE GRANULOCYTES 0.4 %; IMMATURE GRANULOCYTES ABSOLUTE 0.09 10/3/uL (0.0-0.11); LYMPHOCYTES 21.7 %; LYMPHOCYTES ABSOLUTE 4.99 10/3/uL (0.67-4.30); MEAN CORPUS HGB CONC 35.3 g/dL (32.0-36.0); MEAN CORPUSCULAR HEMOGLOB 29.8 pg (26.0-34.0); MEAN CORPUSCULAR VOLUME 84.3 fL (80-100); MEAN PLATELET VOLUME 11.3 fL (9.2-13.0); MONOCYTES 13.6 %; MONOCYTES ABSOLUTE 3.12 10/3/uL (0.21-1.20); NEUTROPHILS 64.2 %; NEUTROPHILS ABSOLUTE 14.72 10/3/uL (2.02-8.40); PLATELET COUNT 161 10/3/uL (150-400); RBC DISTRIBUTION WIDTH 15.7 % (12.0-16.0); RED CELL COUNT 3.19 10/6/uL (4.0-5.6)
[2017-03-19 06:40] LABS: MANUAL DIFF NO %
[2017-03-19 10:19] LABS: HEMATOCRIT 27.9 % (36.0-48.0); HEMOGLOBIN 9.8 g/dL (12.0-16.0)
[2017-03-19 10:34] LABS: CPK 122 U/L (0-200)
[2017-03-19 11:14] LABS: PROCALCITONIN 0.75 ng/mL (<0.5)
[2017-03-19 16:53] LABS: HEMATOCRIT 22.8 % (36.0-48.0); HEMOGLOBIN 7.9 g/dL (12.0-16.0)
[2017-03-19 17:08] LABS: CPK 88 U/L (0-200)
[2017-03-19 17:09] LABS: CK-MB 3.4 NG/ML; TROPONIN I 0.32 NG/ML (<0.05)
[2017-03-20 00:03] LABS: HEMOGLOBIN 11.9 g/dL (12.0-16.0)
[2017-03-20 03:57] LABS: BASOPHILS 0.1 %; BASOPHILS ABSOLUTE 0.02 10/3/uL (0.0-0.16); EOSINOPHILS 0.1 %; EOSINOPHILS ABSOLUTE 0.02 10/3/uL (0.0-0.53); HEMATOCRIT 34.2 % (36.0-48.0); HEMOGLOBIN 12.1 g/dL (12.0-16.0); IMMATURE GRANULOCYTES 0.7 %; IMMATURE GRANULOCYTES ABSOLUTE 0.11 10/3/uL (0.0-0.11); LYMPHOCYTES 15.3 %; LYMPHOCYTES ABSOLUTE 2.29 10/3/uL (0.67-4.30); MANUAL DIFF NO %; MEAN CORPUS HGB CONC 35.4 g/dL (32.0-36.0); MEAN CORPUSCULAR HEMOGLOB 29.6 pg (26.0-34.0); MEAN CORPUSCULAR VOLUME 83.6 fL (80-100); MEAN PLATELET VOLUME 10.9 fL (9.2-13.0); MONOCYTES 15.5 %; MONOCYTES ABSOLUTE 2.31 10/3/uL (0.21-1.20); NEUTROPHILS 68.3 %; NEUTROPHILS ABSOLUTE 10.17 10/3/uL (2.02-8.40); PLATELET COUNT 106 10/3/uL (150-400); RBC DISTRIBUTION WIDTH 15.3 % (12.0-16.0); RED CELL COUNT 4.09 10/6/uL (4.0-5.6); WHITE BLOOD CELLS 14.9 10/3/uL (4.5-10.5)
[2017-03-20 04:16] LABS: ALBUMIN 2.4 G/DL (3.5-5.0); ALKALINE PHOSPHATASE 55 U/L (45-117); BUN (BLOOD UREA NITROGEN) 28 MG/DL (6-23); CALCIUM, SERUM 7.4 MG/DL (8.5-10.4); CHLORIDE, SERUM 115 MMOL/L (96-112); CK-MB 3.3 NG/ML; CO2 (CARBON DIOXIDE) 24 MMOL/L (24-34); CPK 90 U/L (0-200); CREATININE 0.67 MG/DL (0.55-1.02); GFR AFRICAN AMERICAN 91 ML/MIN (>=60); GFR NON AFRICAN AMERICAN 78 ML/MIN (>=60); GLOBULIN 2.4 G/DL (2.5-4.1); GLUCOSE, SERUM 104 MG/DL (60-99); PHOSPHORUS, SERUM 1.2 MG/DL (2.5-4.5); POTASSIUM, SERUM 3.4 MMOL/L (3.5-5.3); SGOT(AST) 18 U/L (5-40); SGPT(ALT) 11 U/L (5-65); SODIUM, SERUM 149 MMOL/L (135-148); TOTAL BILIRUBIN 0.7 MG/DL (0-1.2); TOTAL PROTEIN 4.8 G/DL (6.0-8.5); TROPONIN I 0.26 NG/ML (<0.05)
[2017-03-20 04:17] LABS: INTERNATIONAL NORMAL RATI 1.1 UNITS (-); PROTIME (NOT ORD) 14.1 SEC (12.0-14.5)
[2017-03-20 07:05] LABS: HEMATOCRIT 30.8 % (36.0-48.0); HEMOGLOBIN 10.9 g/dL (12.0-16.0)
[2017-03-20 14:20] LABS: HEMATOCRIT 29.8 % (36.0-48.0); HEMOGLOBIN 10.4 g/dL (12.0-16.0)
[2017-03-20 18:53] LABS: HEMATOCRIT 30.5 % (36.0-48.0); HEMOGLOBIN 10.4 g/dL (12.0-16.0)
[2017-03-21 02:16] LABS: BASOPHILS 0.3 %; BASOPHILS ABSOLUTE 0.03 10/3/uL (0.0-0.16); EOSINOPHILS 3.6 %; EOSINOPHILS ABSOLUTE 0.38 10/3/uL (0.0-0.53); HEMATOCRIT 31.1 % (36.0-48.0); HEMOGLOBIN 10.3 g/dL (12.0-16.0); IMMATURE GRANULOCYTES 0.7 %; IMMATURE GRANULOCYTES ABSOLUTE 0.07 10/3/uL (0.0-0.11); LYMPHOCYTES 22.9 %; LYMPHOCYTES ABSOLUTE 2.44 10/3/uL (0.67-4.30); MEAN CORPUSCULAR HEMOGLOB 28.6 pg (26.0-34.0); MONOCYTES ABSOLUTE 1.39 10/3/uL (0.21-1.20); NEUTROPHILS 59.5 %; NEUTROPHILS ABSOLUTE 6.36 10/3/uL (2.02-8.40); PLATELET COUNT 129 10/3/uL (150-400); RBC DISTRIBUTION WIDTH 16.4 % (12.0-16.0); WHITE BLOOD CELLS 10.7 10/3/uL (4.5-10.5)
[2017-03-21 02:17] LABS: MANUAL DIFF NO %; MEAN CORPUS HGB CONC 33.1 g/dL (32.0-36.0); MEAN CORPUSCULAR VOLUME 86.4 fL (80-100)
[2017-03-21 02:32] LABS: ALBUMIN 2.2 G/DL (3.5-5.0); BUN (BLOOD UREA NITROGEN) 13 MG/DL (6-23); CALCIUM, SERUM 7.7 MG/DL (8.5-10.4); CHLORIDE, SERUM 115 MMOL/L (96-112); CK-MB 2.1 NG/ML; CO2 (CARBON DIOXIDE) 27 MMOL/L (24-34); CPK 53 U/L (0-200); CREATININE 0.76 MG/DL (0.55-1.02); GFR AFRICAN AMERICAN 81 ML/MIN (>=60); GFR NON AFRICAN AMERICAN 70 ML/MIN (>=60); GLUCOSE, SERUM 92 MG/DL (60-99); PHOSPHORUS, SERUM 2.8 MG/DL (2.5-4.5); SODIUM, SERUM 148 MMOL/L (135-148); TROPONIN I 0.18 NG/ML (<0.05)
[2017-03-21 08:34] LABS: HEMATOCRIT 32.1 % (36.0-48.0); HEMOGLOBIN 10.7 g/dL (12.0-16.0)
[2017-03-21 14:41] LABS: HEMATOCRIT 32.1 % (36.0-48.0); HEMOGLOBIN 10.9 g/dL (12.0-16.0)
[2017-03-21 21:11] LABS: HEMATOCRIT 32.8 % (36.0-48.0)
[2017-03-22 06:02] LABS: HEMATOCRIT 31.3 % (36.0-48.0); HEMOGLOBIN 10.5 g/dL (12.0-16.0); MEAN CORPUS HGB CONC 33.5 g/dL (32.0-36.0); MEAN CORPUSCULAR HEMOGLOB 29.1 pg (26.0-34.0); MEAN CORPUSCULAR VOLUME 86.7 fL (80-100); MEAN PLATELET VOLUME 11.1 fL (9.2-13.0); PLATELET COUNT 116 10/3/uL (150-400); RBC DISTRIBUTION WIDTH 16.3 % (12.0-16.0); RED CELL COUNT 3.61 10/6/uL (4.0-5.6); WHITE BLOOD CELLS 10.4 10/3/uL (4.5-10.5)
[2017-03-22 06:06] LABS: MANUAL DIFF YES %
[2017-03-22 06:47] LABS: BAND NEUTROPHILS 3 %; EOSINOPHILS 6 %; EOSINOPHILS ABSOLUTE (CALC) 0.62 10/3/uL (0.0-0.53); LYMPHOCYTES 18 %; LYMPHOCYTES ABSOLUTE (CALC) 1.87 10/3/uL (0.67-4.30); METAMYELOCYTES 1 %; MONOCYTES 3 %; MONOCYTES ABSOLUTE (CALC) 0.31 10/3/uL (0.21-1.20); NEUTROPHILS ABSOLUTE (CALC) 7.49 10/3/uL (2.02-8.40); POLYCHROMASIA 1+ (2-5/OIF) (0-1/OIF); SEGMENTED NEUTROPHIL (0) 69 %; TOTAL NUCLEATED CELLS 100
[2017-03-22 08:03] LABS: BUN (BLOOD UREA NITROGEN) 7 MG/DL (6-23); CALCIUM, SERUM 8.2 MG/DL (8.5-10.4); CHLORIDE, SERUM 114 MMOL/L (96-112); CK-MB 1.2 NG/ML; CO2 (CARBON DIOXIDE) 25 MMOL/L (24-34); CPK 42 U/L (0-200); CREATININE 0.65 MG/DL (0.55-1.02); GFR AFRICAN AMERICAN 92 ML/MIN (>=60); GFR NON AFRICAN AMERICAN 79 ML/MIN (>=60); GLUCOSE, SERUM 85 MG/DL (60-99); POTASSIUM, SERUM 3.6 MMOL/L (3.5-5.3); SODIUM, SERUM 145 MMOL/L (135-148)
[2017-03-22 08:04] LABS: TROPONIN I 0.13 NG/ML (<0.05)
[2017-03-22 16:07] LABS: FERRITIN 100 NG/ML (8-252)
[2017-03-23 05:26] LABS: HEMOGLOBIN 11.9 g/dL (12.0-16.0); MEAN CORPUS HGB CONC 33.9 g/dL (32.0-36.0); MEAN CORPUSCULAR HEMOGLOB 29.4 pg (26.0-34.0); MEAN CORPUSCULAR VOLUME 86.7 fL (80-100); MEAN PLATELET VOLUME 9.8 fL (9.2-13.0); RBC DISTRIBUTION WIDTH 15.8 % (12.0-16.0); RED CELL COUNT 4.05 10/6/uL (4.0-5.6); WHITE BLOOD CELLS 12.5 10/3/uL (4.5-10.5)
[2017-03-23 05:29] LABS: HEMATOCRIT 35.1 % (36.0-48.0); MANUAL DIFF YES %; PLATELET COUNT 182 10/3/uL (150-400)
[2017-03-23 05:40] LABS: BUN (BLOOD UREA NITROGEN) 5 MG/DL (6-23); CALCIUM, SERUM 8.1 MG/DL (8.5-10.4); CHLORIDE, SERUM 109 MMOL/L (96-112); CO2 (CARBON DIOXIDE) 29 MMOL/L (24-34); GFR AFRICAN AMERICAN 76 ML/MIN (>=60); GFR NON AFRICAN AMERICAN 66 ML/MIN (>=60); GLUCOSE, SERUM 100 MG/DL (60-99); POTASSIUM, SERUM 3.4 MMOL/L (3.5-5.3); SODIUM, SERUM 143 MMOL/L (135-148)
[2017-03-23 05:55] LABS: BAND NEUTROPHILS 1 %; EOSINOPHILS 6 %; EOSINOPHILS ABSOLUTE (CALC) 0.75 10/3/uL (0.0-0.53); IMMATURE GRANS ABSOLUTE (CALC) 0.38 10/3/uL (0.0-0.11); LYMPHOCYTES 24 %; METAMYELOCYTES 3 %; MONOCYTES 6 %; MONOCYTES ABSOLUTE (CALC) 0.75 10/3/uL (0.21-1.20); NEUTROPHILS ABSOLUTE (CALC) 7.63 10/3/uL (2.02-8.40); PLATELET ESTIMATE ADQ (ADEQUATE); RBC MORPHOLOGY NORM (NORMAL); SEGMENTED NEUTROPHIL (0) 60 %; TOTAL NUCLEATED CELLS 100
[2017-03-23 06:07] LABS: PROCALCITONIN 0.08 ng/mL (<0.5)
[2017-03-24 04:37] LABS: HEMATOCRIT 34.6 % (36.0-48.0); HEMOGLOBIN 11.6 g/dL (12.0-16.0); MEAN CORPUS HGB CONC 33.5 g/dL (32.0-36.0); MEAN CORPUSCULAR HEMOGLOB 29.5 pg (26.0-34.0); MEAN PLATELET VOLUME 10.1 fL (9.2-13.0); PLATELET COUNT 223 10/3/uL (150-400); RBC DISTRIBUTION WIDTH 15.9 % (12.0-16.0); RED CELL COUNT 3.93 10/6/uL (4.0-5.6); WHITE BLOOD CELLS 15.6 10/3/uL (4.5-10.5)
[2017-03-24 04:40] LABS: MANUAL DIFF YES %
[2017-03-24 04:50] LABS: BUN (BLOOD UREA NITROGEN) 6 MG/DL (6-23); CALCIUM, SERUM 8.3 MG/DL (8.5-10.4); CHLORIDE, SERUM 104 MMOL/L (96-112); CO2 (CARBON DIOXIDE) 31 MMOL/L (24-34); CREATININE 0.88 MG/DL (0.55-1.02); GFR AFRICAN AMERICAN 68 ML/MIN (>=60); GFR NON AFRICAN AMERICAN 59 ML/MIN (>=60); GLUCOSE, SERUM 91 MG/DL (60-99); POTASSIUM, SERUM 3.3 MMOL/L (3.5-5.3); SODIUM, SERUM 140 MMOL/L (135-148)
[2017-03-24 05:02] LABS: BAND NEUTROPHILS 1 %; EOSINOPHILS 8 %; EOSINOPHILS ABSOLUTE (CALC) 1.25 10/3/uL (0.0-0.53); IMMATURE GRANS ABSOLUTE (CALC) 1.09 10/3/uL (0.0-0.11); LYMPHOCYTES 23 %; LYMPHOCYTES ABSOLUTE (CALC) 3.59 10/3/uL (0.67-4.30); METAMYELOCYTES 6 %; MONOCYTES 3 %; MONOCYTES ABSOLUTE (CALC) 0.47 10/3/uL (0.21-1.20); MYELOCYTES 1 %; PLATELET ESTIMATE ADQ (ADEQUATE); RBC MORPHOLOGY NORM (NORMAL); SEGMENTED NEUTROPHIL (0) 58 %; TOTAL NUCLEATED CELLS 100
[2017-03-24 06:13] LABS: PROCALCITONIN 0.14 ng/mL (<0.5)
[2017-03-25 05:13] LABS: HEMATOCRIT 37.7 % (36.0-48.0); HEMOGLOBIN 12.3 g/dL (12.0-16.0); MANUAL DIFF YES %; MEAN CORPUS HGB CONC 32.6 g/dL (32.0-36.0); MEAN CORPUSCULAR HEMOGLOB 29.9 pg (26.0-34.0); MEAN CORPUSCULAR VOLUME 91.5 fL (80-100); MEAN PLATELET VOLUME 10.1 fL (9.2-13.0); PLATELET COUNT 285 10/3/uL (150-400); RBC DISTRIBUTION WIDTH 16.4 % (12.0-16.0); RED CELL COUNT 4.12 10/6/uL (4.0-5.6); WHITE BLOOD CELLS 14.4 10/3/uL (4.5-10.5)
[2017-03-25 05:24] LABS: BUN (BLOOD UREA NITROGEN) 8 MG/DL (6-23); CALCIUM, SERUM 8.5 MG/DL (8.5-10.4); CHLORIDE, SERUM 103 MMOL/L (96-112); CO2 (CARBON DIOXIDE) 34 MMOL/L (24-34); CREATININE 1.01 MG/DL (0.55-1.02); GFR AFRICAN AMERICAN 58 ML/MIN (>=60); GFR NON AFRICAN AMERICAN 50 ML/MIN (>=60); GLUCOSE, SERUM 90 MG/DL (60-99); SODIUM, SERUM 137 MMOL/L (135-148)
[2017-03-25 05:56] LABS: BAND NEUTROPHILS 2 %; EOSINOPHILS 9 %; IMMATURE GRANS ABSOLUTE (CALC) 0.86 10/3/uL (0.0-0.11); LYMPHOCYTES 25 %; METAMYELOCYTES 6 %; MONOCYTES 9 %; NEUTROPHILS ABSOLUTE (CALC) 7.34 10/3/uL (2.02-8.40); NUCLEATED RED BLOOD CELLS 0 /100WBC (0); PLATELET ESTIMATE ADQ (ADEQUATE); RBC MORPHOLOGY NORM (NORMAL); SEGMENTED NEUTROPHIL (0) 49 %; TOTAL NUCLEATED CELLS 100
[2017-03-26 15:02] LABS: ASCORBIC ACID (UR NOT ORDER) NEG (NEG); BILIRUBIN, URINE NEGATIVE (NEG); KETONE, URINE NEGATIVE (NEG); LEUKOCYTE ESTERASE(NOT OR NEG (NEG); WBC (NOT ORDERED) (RFLEX) < 1 (0-5)
[2017-06-12] MEDS ORDERED: LEVOTHYROXIN125 MCG PO (16:58)
[2017-06-12] MEDS ORDERED: PROTONIX PO (16:59)
[2017-06-12] MEDS ORDERED: NEUR600 PO (16:59)
[2017-06-12] MEDS ORDERED: ARICEPT10 PO (16:59)
[2017-06-12] MEDS ORDERED: CYMBALTA60 PO (16:59)
[2017-06-12] MEDS ORDERED: T PO (17:00)
[2017-06-12] MEDS ORDERED: AUSTRALIAN DREAM TOP (17:00)
== END 2017-03-26 19:50 | DRG 871 ==
LOC: ER 16:21 → 7NO 03-18 19:53 → MIC 03-18 20:42 → 6NO 03-21 14:18
PROVIDERS: Emergency Medicine; Hospitalist; Internal Medicine; Internal Medicine Cardiovascular Disease; Internal Medicine Gastroenterology; Internal Medicine Pulmonary Disease
PROC: 30233N1 Transfusion of Nonautologous Red Blood Cells into Peripheral Vein, Percutaneous Approach (ICD-10-PCS; 2017-03-18)
PROC: 0DJD8ZZ Inspection of Lower Intestinal Tract, Via Natural or Artificial Opening Endoscopic (ICD-10-PCS; 2017-03-19)
PROC: 0DJ08ZZ Inspection of Upper Intestinal Tract, Via Natural or Artificial Opening Endoscopic (ICD-10-PCS; 2017-03-19)
PROC: 02HV33Z Insertion of Infusion Device into Superior Vena Cava, Percutaneous Approach (ICD-10-PCS; 2017-03-19)
PROC: 4A02X4A Measurement of Cardiac Electrical Activity, Guidance, External Approach (ICD-10-PCS; 2017-03-19)
PROC: 0DBL8ZX Excision of Transverse Colon, Via Natural or Artificial Opening Endoscopic, Diagnostic (ICD-10-PCS; 2017-03-20)
PROC: 0DBM8ZX Excision of Descending Colon, Via Natural or Artificial Opening Endoscopic, Diagnostic (ICD-10-PCS; principal; 2017-03-20 07:45)
DX: A41.9 Sepsis, unspecified organism (principal); K28.4 Chronic or unspecified gastrojejunal ulcer with hemorrhage; K55.039 Acute (reversible) ischemia of large intestine, extent unspecified; N17.9 Acute kidney failure, unspecified; E87.2 Acidosis; I47.1 Supraventricular tachycardia; D62 Acute posthemorrhagic anemia; D69.6 Thrombocytopenia, unspecified; E86.0 Dehydration; E03.9 Hypothyroidism, unspecified; F03.90 Unspecified dementia, unspecified severity, without behavioral disturbance, psychotic disturbance, mood disturbance, and anxiety; F41.9 Anxiety disorder, unspecified; F32.9 Major depressive disorder, single episode, unspecified; R65.20 Severe sepsis without septic shock; K80.20 Calculus of gallbladder without cholecystitis without obstruction; K28.9 Gastrojejunal ulcer, unspecified as acute or chronic, without hemorrhage or perforation; R62.7 Adult failure to thrive; M81.0 Age-related osteoporosis without current pathological fracture; G89.29 Other chronic pain; M48.00 Spinal stenosis, site unspecified; J98.4 Other disorders of lung; Z90.710 Acquired absence of both cervix and uterus; Z90.49 Acquired absence of other specified parts of digestive tract; Z98.890 Other specified postprocedural states; Z88.2 Allergy status to sulfonamides; Z79.82 Long term (current) use of aspirin; Z79.899 Other long term (current) drug therapy; Z79.02 Long term (current) use of antithrombotics/antiplatelets; Z86.73 Personal history of transient ischemic attack (TIA), and cerebral infarction without residual deficits; Z87.891 Personal history of nicotine dependence
CPT/HCPCS: 36415; 36569; 71010; 71020; 72195; 74176; 74181; 76700; 78227; 80048; 80053; 80069; 80076; 81001; 82272; 82330; 82550; 82553; 82570; 82728; 82962; 83036; 83605; 83690; 83735; 83880; 83935; 84100; 84145; 84300; 84439; 84443; 84484; 85014; 85018; 85025; 85610; 85730; 86850; 86900; 86901; 86920; 87040; 87641; 88305; 93005; 93306; 93975; 96365; 96375; 97110-GP; 97161-GP; 97530-GP; 99285; A9270-GY; A9537; A9577; C1751; C8900; C9113; J0153; J0282; J0456; J1170; J2405; J2543; J2765; J2805; J2916; J3475; P9016

== ENCOUNTER 2017-03-30 15:23 | Inpatient (IN) | payer OTHER ==
--- NOTE | ~2017-03-30 | CN ---
Consultation Report [facility] [address] [place]. [address] NAME: RUBY RIOS : [birth year] STATUS : ADM IN PAT#: [id number] AGE: 86 ADM/REG DATE : 03/30/17 MR#: [id number] REPORT SERV DATE: 03/31/17 DICTATED BY: DEEPIKA NIETO DATE: 03/31/17 REPORT STATUS : Draft TRANSCRIBED BY: MODL DATE: 03/31/17 GI CONSULTATION DATE OF CONSULTATION: 03/31/2017 86-year-old female patient admitted on 03/30/2017. REASON FOR CONSULTATION: Evaluation and management of recurrent GI bleeding. HISTORY OF PRESENT ILLNESS: Ms. Rios is an 86-year-old female patient, who was just recently in the hospital for GI bleeding from 03/18/2017, discharge date 03/26/2017. She was seen by our group on 03/19/2017. She underwent small bowel enteroscopy with Dr. Leobardo Briceno. Findings on that exam showed a jejunal ulcer with pigmented material being a large lesion was at 4 mm. None of the ulcers were actively bleeding. There was no blood seen in the jejunal lumen and no evidence of significant pathology in the entire examined duodenum. She then on 03/20/2017, underwent a colonoscopy with Dr. Jennings. This exam showed small linear superficial ulcerations with surrounding erythema patchy located within transverse and descending colon. Multiple biopsies were obtained. He stated that the ulcerations were overall very mild. There was no active bleeding or no evidence of recent bleeding in the entire colon. Biopsies did return for early signs of ischemic changes. She was seen by General Surgery as well as vascular Surgery for mesenteric ischemia with no intervention being undertaken. She also has a complaint of chronic epigastric right upper quadrant pain. General Surgery ordered a HIDA scan which was normal. Therefore no surgical intervention was undertaken. She was subsequently discharged on 03/26/2017, with a hemoglobin of 12.3. She went to a rehab facility. She states to me that her stools are always black. They have not been any different color since she was discharged. The morning of her admission, she developed some what she describes as some mild abdominal discomfort, nausea, and then had an episode of very large hematemesis, stating nothing but bright red blood and continued to have dark stools. On admission, hemoglobin was found to be 6.4. She has been transfused with two units of packed red blood cells with an improvement to 9.5 and a hematocrit of 28.1. She did have noted leukocytosis on admission of 21.9. She has been afebrile and no documented fevers at the facility where she was residing. She is on no anticoagulants other than a baby aspirin. I have discussed the case with Dr. Shook. At present we will start her on a Protonix drip. Likely the patient will undergo a repeat small bowel enteroscopy tomorrow with plus or minus a small-bowel capsule endoscopy at the time of exam. I did discuss this with her the risks, benefits, alternatives, and complications were detailed for her to include, but not limited to the risk of bleeding, perforation, infection, reaction to medication, as well as cardiac and pulmonary side effects. PAST MEDICAL HISTORY: Positive for sepsis early this month 03/18/2017 to 03/26/2017, unclear etiology; ischemic colitis with biopsy-proven results; jejunal ulcerations with no bleeding; recent upper GI bleed seen and treated at [facility]; cholelithiasis; acute kidney injury; failure to thrive; dementia; hypothyroidism; anxiety and depression; history of previous CVA; and atrial fibrillation. Consultation Report [address] [place]. [address] NAME: RUBY RIOS : [birth year] STATUS : ADM IN [facility]#: [id number] AGE: 86 ADM/REG DATE : 03/30/17 MR#: [id number] REPORT SERV DATE: 03/31/17 DICTATED BY: DEEPIKA NIETO DATE: 03/31/17 REPORT STATUS : Draft TRANSCRIBED BY: EVANS DATE: 03/31/17 PAST SURGICAL HISTORY: Includes back surgeries times multiple; abdominal hysterectomy; tonsillectomy; appendectomy; small bowel enteroscopy; and colonoscopy. SOCIAL HISTORY: Currently residing at a nursing facility for rehab purposes. There is no history of alcohol or tobacco or illicits. FAMILY HISTORY: Noncontributory from a GI standpoint. ALLERGIES: ARE LISTED TO SULFA. HOME MEDICATIONS: 1. Vitamin C. 2. Aspirin. 3. Aricept. 4. Cymbalta. 5. Neurontin. 6. Synthroid. 7. Vitamin D3. REVIEW OF SYSTEMS: A 10-point review of systems has been obtained with pertinent positives being addressed in the history of present illness. PHYSICAL EXAMINATION: VITAL SIGNS: Temperature is 97.2, pulse is 68, respiration of 12, and blood pressure 142/63. NEUROLOGIC: Physical exam reveals an alert, female, resting in bed with no focal deficits being noted. She complains of being weak and tired. GENERAL: She is cooperative, in no apparent distress. She is awake, alert, and oriented to self. She knows she is in the hospital. HEAD, EARS, EYES, NOSE, AND THROAT: Anicteric. Pupils are equal, round, reactive to light and accommodation. Normocephalic and atraumatic. NECK: Supple. No JVD. No palpable nodes. LUNGS: Clear anteriorly with normal respiratory effort exhibited. Equal expansion. CARDIOVASCULAR SYSTEM: Currently in regular rate and rhythm. S1 and S2. No murmurs, rubs, gallops, S3, or S4 appreciated. ABDOMEN: Soft, nondistended. She has mild generalized tenderness to palpation without rebound or guarding elicited on exam. No organomegaly was appreciated. EXTREMITIES: Warm, dry, and intact with scant lower extremity edema. SKIN: Warm, dry, and intact. PERTINENT LABORATORY DATA: Sodium 140, potassium 4.2, BUN 26, and creatinine 0.65. White blood cell count 21.9, hemoglobin 9.5, hematocrit 28.1, and platelet count 270. INR of 1.1. Total bilirubin 0.4, alkaline phosphatase 50, ALT 21, AST 20, and lipase of 156. CTA of the abdomen and pelvis showed in the impression unremarkable. No dissection or aneurysm. She Consultation Report [address] [address] NAME: RUBY RIOS : [birth year] STATUS : ADM IN PAT#: [id number] AGE: 86 ADM/REG DATE : 03/30/17 MR#: [id number] REPORT SERV DATE: 03/31/17 DICTATED BY: DEEPIKA NIETO DATE: 03/31/17 REPORT STATUS : Draft TRANSCRIBED BY: EVANS DATE: 03/31/17 had mild bibasilar subsegmental atelectasis with trace left pleural effusion. Cholelithiasis with no cholecystitis. Small left renal cyst. ASSESSMENT AND PLAN: 1. Upper GI bleed with hematemesis/melena in a patient with a history of recent GI bleeding seen at [facility] with a reported ulcer that was clipped. Recent small-bowel enteroscopy 03/19/2017, with nonbleeding jejunal ulcer. Recent colonoscopy 03/20/2017, with ulcers in the transverse and descending colon. Biopsy proven ischemic changes. Differential diagnosis includes a Dieulafoy lesion, recurrent ulcer bleeding AVMs. 2. Acute blood loss anemia, improved status post two units. 3. History of ischemic colitis. 4. Chronic abdominal pain. 5. Leukocytosis. 6. History of CVA with aspirin on hold. PLAN: 1. To initiate Protonix drip. 2. The patient will likely need repeat EGD, small bowel push enteroscopy with pill camera if negative on the with Dr. Shook. 3. Morning labs of CBC, BMP, we will trend her H and H, transfuse if needed. 4. Clear liquid diet today with her being made n.p.o. after midnight. We will follow. RAFFY/EVANS Deepika KRISTI Gonzalez / [id number] CC: Estelle Varela M.D.
--- NOTE | ~2017-03-30 | DS ---
Discharge Summary [id number] [place]. [address] NAME: RUBY RIOS : [birth year] STATUS : DIS IN PAT#: [id number] AGE: 86 ADM/REG DATE : 03/30/17 MR#: [id number] REPORT SERV DATE: 04/09/17 DICTATED BY: KIMANI ARRIAZA DATE: 04/08/17 REPORT STATUS : Draft TRANSCRIBED BY: EVANS DATE: 04/08/17 ADMISSION DATE: 03/30/2017 DISCHARGE DATE: 04/08/[address] Shook, outpatient GI, Dr. Briceno. FINAL DIAGNOSES: Acute blood loss anemia, status post 1 unit packed red blood cells; upper gastrointestinal bleed secondary to esophagitis; history of jejunal ulcer and ischemic colitis; history of colonic ulceration; dementia with history of prior cerebrovascular accident; hypothyroidism; anxiety and depression. HOSPITAL COURSE: Please refer to the discharge summary that I did on 04/06/2017. Since that time, the patient remained stable and was waiting for insurance approval. Unfortunately, she was denied in [facility] and [facility] was not able to take her as well. We finally got [facility] and they are willing to accept the patient today. The patient will now be discharged there. She will follow up with the doctors there and follow up with Dr. Óscar Vera after she gets discharged from [facility]. She will be on the same medication that she was on that I dictated. DICTATED BY: Estelle Oates/EVANS Kimani Arriaza M.D. / [id number] CC: Estelle Oates M.D.
--- NOTE | ~2017-03-30 | HP ---
History And Physical [id number] [facility] [place]. [address] NAME: RUBY RIOS : [birth year] STATUS : ADM IN [facility]#: [id number] AGE: 86 ADM/REG DATE : 03/30/17 MR#: [id number] REPORT SERV DATE: 03/30/17 DICTATED BY: RICH PEREZ DATE: 03/30/17 REPORT STATUS : Draft TRANSCRIBED BY: MODL DATE: 03/30/17 DATE OF ADMISSION: 03/30/2017 CHIEF COMPLAINT: Abdominal pain, hematemesis. HISTORY OF PRESENT ILLNESS: The patient is a very pleasant 86-year-old white female. She has had an unfortunate recent past medical history. She was just in the hospital from 03/18/2017 to 03/26/2017 with what looks like GI bleeding and possible sepsis. She had colonoscopy and EGD. On colonoscopy, she was found to have ischemic colitis. She had a vascular evaluation, including mesenteric duplex and MRA of the abdomen, both of which were negative. She also saw the vascular surgeon, Dr. Schmidt, who felt this was not consistent with mesenteric ischemia as her vessels appeared to be open. He thought she certainly could have large bowel ischemic colitis, recommended supportive care as they were doing. She also underwent EGD, which showed ulcerations in her jejunum. She received a total of 4 units of blood. Her abdominal pain seemed to improve. Her leukocytosis improved. She was treated with IV Zosyn with an unclear reason as to what the etiology was. She ultimately [facility] a pen[facility] and then this morning, she had episode of hematemesis as well as black tarry stool. She had lower and generalized abdominal pain and presented to the ER. She has not had documented fevers. She has not had real diarrhea. She had some loose stool and some black tarry stool and again hematemesis this morning. PAST MEDICAL HISTORY: 1. Sepsis, 03/18/2017 through 03/26/2017, unclear etiology. 2. Ischemic colitis, confirmed on biopsy. 3. Jejunal ulcerations, confirmed on EGD. 4. Gallstones with a negative HIDA scan. 5. Acute kidney injury. 6. Failure to thrive. 7. Hypothyroidism. 8. Dementia. 9. Previous CVA. 10.Anxiety and depression. SURGICAL HISTORY: She had multiple back surgeries, abdominal hysterectomy, appendectomy, tonsillectomy. ALLERGIES: SULFA. HOME MEDICATIONS: Reviewed and attached. SOCIAL HISTORY: No history of tobacco or alcohol. She is . She is currently rehabilitating at a penitentiary. FAMILY HISTORY: Positive for mother of old age in her 90s. Her father had non-Hodgkin lymphoma. History And Physical [address] [address] NAME: RUBY RIOS : [birth year] STATUS : ADM IN [facility]#: [id number] AGE: 86 ADM/REG DATE : 03/30/17 MR#: [id number] REPORT SERV DATE: 03/30/17 DICTATED BY: RICH PEREZ DATE: 03/30/17 REPORT STATUS : Draft TRANSCRIBED BY: EVANS DATE: 03/30/17 REVIEW OF SYSTEMS: Full 10-point review of systems is obtained, pertinent positives are mentioned in the HPI. PHYSICAL EXAMINATION: CURRENT VITAL SIGNS: Blood pressure 138/37, pulse 79, saturations 100%, respiratory rate 15, temperature is 98.1. GENERAL: Frail-appearing white female, pale. HEENT: Normocephalic, atraumatic. Throat is clear. NECK: Supple. HEART: Regular rate and rhythm. LUNGS: Grossly clear. ABDOMEN: Soft, but tender in all four quadrants. EXTREMITIES: Warm and dry. SKIN: Intact. Pulses are 2+ at the feet. NEURO: She is alert. She is oriented to person, place, and time. She is a bit sleepy from some Phenergan. She moves all four extremities symmetrically. PSYCH: Her mood and affect are appropriate. LABORATORY AND X-RAY DATA: Lactate is 1.8. Chest x-ray shows mild left perihilar and left basilar atelectasis and scarring, stable DJD of the left shoulder. Magnesium 1.5, total protein 4.5, albumin 2.2. ALT, AST, and alkaline phosphatase are normal. Troponin is 0.03. Lipase is 156. Basic metabolic panel: Sodium 144, potassium 4.1, chloride 109, CO2 of 26, BUN and creatinine 39 and 0.65, glucose is 108. CBC: H and H 6.4 and 19.6, white count 21.9, platelets are 270. EKG shows what looks like some sinus arrhythmia with sinus PACs. ASSESSMENT/PLAN: 1. Anemia with hematemesis. Will admit to IMCU, type and cross, transfuse two units now. Repeat hemoglobin, then likely transfuse two more if needed. Place her on empiric IV Zosyn and place on IV PPI, 40 of Protonix b.i.d., keep n.p.o. Consult Dr. Duncan. He is oncology social worker for Dr. Janak golden. If hemoglobin on recheck is less than 8, we will give 2 more units of packed red cells. She will likely need repeat EGD. 2. Leukocytosis, certainly gastrointestinal bleeding can cause leukocytosis. She is going to get an EGD likely tomorrow. We are working her up for gastrointestinal bleeding, but given the fact that she had a history of ischemic colitis recently and some abdominal pain, I am going to repeat her CT of the abdomen and pelvis, but we will do a CTA this time. We will cover her with IV Zosyn. We will send off stool studies if she has diarrhea. We will provide IV fluid resuscitation and go from there. 3. Possible sepsis. She does have a leukocytosis. Her lactic acid has actually come down since she has gotten here. We will send off blood cultures, urine cultures, culture of stool if possible. Treat for possible ischemic colitis and go from there. 4. History of cerebrovascular accident. We will hold her aspirin for now given ongoing gastrointestinal bleeding. 5. History of hypothyroidism. 6. History of dementia. 7. Failure to thrive. 8. Deep venous thrombosis prophylaxis. SCDs for now. History And Physical [address] [address] NAME: RUBY RIOS : [birth year] STATUS : ADM IN PAT#: [id number] AGE: 86 ADM/REG DATE : 03/30/17 MR#: [id number] REPORT SERV DATE: 03/30/17 DICTATED BY: RICH PEREZ DATE: 03/30/17 REPORT STATUS : Draft TRANSCRIBED BY: EVANS DATE: 03/30/17 DISPOSITION: Pending above. JOSSY/EVANS Rich Perez M.D. / [id number] CC: Estelle Varela M.D. David Winters, D.O. Vijaykurmar Patel, M.D.
--- NOTE | ~2017-03-30 | DS ---
Discharge Summary [id number] [facility] [place] [address] NAME: RUBY RIOS : [birth year] STATUS : ADM IN PAT#: [id number] AGE: 86 ADM/REG DATE : 03/30/17 MR#: [id number] REPORT SERV DATE: 04/06/17 DICTATED BY: KIMANI ARRIAZA DATE: 04/06/17 REPORT STATUS : Draft TRANSCRIBED BY: MODL DATE: 04/06/17 ADMISSION DATE: 03/30/2017 DISCHARGE DATE: CONSULTATIONS: GI, Dr. Briceno. Inpatient GI, Dr. Shook. FINAL DIAGNOSES: 1. Acute blood loss anemia, status post one unit of packed RBC. 2. Upper GI bleed secondary to esophagitis. 3. History of jejunal ulcer and ischemic colitis. 4. History of colonic ulceration. 5. Dementia with history of prior cerebrovascular accident. 6. Hypothyroidism. 7. Anxiety and depression. DIAGNOSTIC EXAMS: Chest x-ray showing mild left perihilar and left basilar atelectasis and/or scarring, otherwise no acute cardiopulmonary abnormality, stable degenerative changes of the left shoulder. CTA of the abdomen and pelvis showing unremarkable findings; no dissection or aneurysm; mild bibasilar subsegmental atelectasis and trace left pleural effusion; stable vertebroplasty changes, T11 and stable severe insufficiency fracture, L1; moderate insufficiency fracture, L2 and no new insufficiency fracture is identified; cholelithiasis, no acute cholecystitis; stable changes of appendectomy and hysterectomy; small left renal cyst. HOSPITAL COURSE: Please refer to the H and P done by Dr. Perez dated on 03/30/2017. Briefly, this is an 86-year-old female, who comes in for hematemesis. The patient has a history of GI bleeding, ischemic colitis, jejunal ulcer, and colonic ulceration. She was recently discharged on 03/26 with the above diagnoses and had four units of packed RBC. Vascular workup was done and it did not show anything that the surgeon would do. The patient was then sent to rehab with aspirin. The patient was doing well until recently when she had hematemesis. Of note, she always has chronic black tarry stool and abdominal pain. The patient was then sent here and was transfused one unit of blood. The patient got a GI consult, where an EGD was done and showed erosive esophagitis, normal stomach, normal duodenum. The patient was placed on high-dose PPI and taken off aspirin and H and H were followed, they remained stable with the latest H and H at 10.4 and 32.6. The patient continued having this abdominal pain and back pain, and she said that the [place] is helping and she would want to continue that on discharge. Meanwhile, she is able to eat a soft diet without any nausea and vomiting and she is eager to get out of the hospital, so once we have insurance approval, we will send the patient back to [facility] with the above diagnoses. She will be off aspirin for now while she continues Aricept 10 mg a day, Cymbalta 60 mg a day, gabapentin 600 mg a day, Synthroid 125 mcg a day, Protonix 40 mg twice a day, and vitamin D3. The patient will follow up with the [facility] doctor, then follow up with Dr. Óscar Vera once she gets out of [facility]. This has been explained to the patient. TIME SPENT: 40 minutes. Discharge Summary [address] [address] NAME: RUBY RIOS : [birth year] STATUS : ADM IN PAT#: [id number] AGE: 86 ADM/REG DATE : 03/30/17 MR#: [id number] REPORT SERV DATE: 04/06/17 DICTATED BY: KIMANI ARRIAZA DATE: 04/06/17 REPORT STATUS : Draft TRANSCRIBED BY: EVANS DATE: 04/06/17 DICTATED BY: Estelle Oates/EVANS Kimani Arriaza M.D. / [id number] CC: Estelle Oates M.D.
--- NOTE | ~2017-03-30 | EGD ---
EGD REPORT [facility] [address] [address] NAME: RUBY RIOS : [birth year] STATUS : ADM IN PAT#: [id number] AGE: 86 ADM/REG DATE : 03/30/17 MR#: [id number] REPORT SERV DATE: 04/01/17 DICTATED BY: BRANDYN MUÑOZ DATE: 04/01/17 REPORT STATUS : Draft TRANSCRIBED BY: [facility] DATE: 04/01/17 Endoscopy Center Patient Name: Ruby Rios Date of : 1930 Attending MD: BRANDYN MUÑOZ MD Procedure Date No Time: 04/01/2017 Procedure: Small bowel enteroscopy Indications: Recurrent gastrointestinal bleeding, Recurrent bleeding in the small bowel Referring MD: STEVEN CUELLAR Medicines: Monitored Anesthesia Care Complications: No immediate complications. Estimated blood loss: None. Procedure: Pre-Anesthesia Assessment: - ASA Grade Assessment: IV - A patient with severe systemic disease that is a constant threat to life. After obtaining informed consent, the endoscope was passed under direct vision. Throughout the procedure, the patient's blood pressure, pulse, and oxygen saturations were monitored continuously. The PCF [id number] was introduced through the mouth and advanced to the mid-jejunum. The small bowel enteroscopy was accomplished without difficulty. The patient tolerated the procedure well. Findings: LA Grade D (one or more mucosal breaks involving at least 75% of esophageal circumference) esophagitis with no bleeding was found in the entire esophagus. The entire examined stomach was normal. There was no evidence of significant pathology in the entire examined duodenum. There was no evidence of significant pathology in the entire examined jejunum through 200 cm (from the incisors). Impression: - LA Grade D erosive esophagitis. This was the only potential source of hematemesis seen on the entire examination. - Normal stomach. - Normal examined duodenum. - The examined portion of the jejunum was normal. There were no ulcers that were still present on this examination, with complete healing since the last exam. Recommendation: - [facility]. - Clear liquid diet today. EGD REPORT [address] [address] NAME: RUBY RIOS : [birth year] STATUS : ADM IN [facility]#: [id number] AGE: 86 ADM/REG DATE : 03/30/17 MR#: [id number] REPORT SERV DATE: 04/01/17 DICTATED BY: BRANDYN MUÑOZ DATE: 04/01/17 REPORT STATUS : Draft TRANSCRIBED BY: [employer] DATE: 04/01/17 - Use Protonix (pantoprazole) 40 mg PO BID for 6 weeks. - Check hemoglobin q 12 hours until stable. Procedure Code(s): --- Professional --- 22222, Small intestinal endoscopy, enteroscopy beyond second portion of duodenum, not including ileum; diagnostic, with or without collection of specimen(s) by brushing or washing (separate procedure) Diagnosis Code(s): --- Professional --- K20.8, Other esophagitis K92.2, Gastrointestinal hemorrhage, unspecified CPT copyright 2013 [employer]. All rights reserved. The codes documented in this report are preliminary and upon remote coders review may be revised to meet current compliance requirements. Brandyn Muñoz MD BRANDYN MUÑOZ MD 04/01/2017 8:11 AM This report has been signed electronically. Number of Addenda: 0 Note Initiated On: 04/01/2017 6:55 AM Scope Withdrawal Time 0 hours 0 minutes 0 seconds [address] [place] [id number]
[2017-03-30 14:37] LABS: BASOPHILS 0.3 %; BASOPHILS ABSOLUTE 0.06 10/3/uL (0.0-0.16); EOSINOPHILS 0.6 %; EOSINOPHILS ABSOLUTE 0.13 10/3/uL (0.0-0.53); IMMATURE GRANULOCYTES 1.3 %; IMMATURE GRANULOCYTES ABSOLUTE 0.28 10/3/uL (0.0-0.11); LYMPHOCYTES 16.7 %; LYMPHOCYTES ABSOLUTE 3.65 10/3/uL (0.67-4.30); MEAN CORPUS HGB CONC 32.7 g/dL (32.0-36.0); MEAN CORPUSCULAR HEMOGLOB 30.5 pg (26.0-34.0); MEAN CORPUSCULAR VOLUME 93.3 fL (80-100); MEAN PLATELET VOLUME 9.8 fL (9.2-13.0); MONOCYTES 6.4 %; MONOCYTES ABSOLUTE 1.41 10/3/uL (0.21-1.20); NEUTROPHILS 74.7 %; NEUTROPHILS ABSOLUTE 16.37 10/3/uL (2.02-8.40); PLATELET COUNT 270 10/3/uL (150-400); RBC DISTRIBUTION WIDTH 18.3 % (12.0-16.0)
[2017-03-30 14:38] LABS: WHITE BLOOD CELLS 21.9 10/3/uL (4.5-10.5)
[2017-03-30 14:39] LABS: HEMATOCRIT 19.6 % (36.0-48.0); HEMOGLOBIN 6.4 g/dL (12.0-16.0)
[2017-03-30 14:40] LABS: ER CBC TAT 0 Hrs 05 MinsNP; MANUAL DIFF NO %
[2017-03-30 14:47] LABS: INTERNATIONAL NORMAL RATI 1.1 UNITS (-); PARTIAL THROMBO TIME 28.9 SEC (22.5-37.2); PROTIME (NOT ORD) 14.5 SEC (12.0-14.5)
[2017-03-30 14:55] LABS: ALBUMIN 2.2 G/DL (3.5-5.0); ALKALINE PHOSPHATASE 50 U/L (45-117); CALCIUM, SERUM 8.1 MG/DL (8.5-10.4); CHEST PAIN PROFILE TAT 0 Hrs 22 Mins; CHLORIDE, SERUM 109 MMOL/L (96-112); CREATININE 0.65 MG/DL (0.55-1.02); GFR AFRICAN AMERICAN 92 ML/MIN (>=60); GFR NON AFRICAN AMERICAN 79 ML/MIN (>=60); GLUCOSE, SERUM 108 MG/DL (60-99); POTASSIUM, SERUM 4.1 MMOL/L (3.5-5.3); SGOT(AST) 23 U/L (5-40); SGPT(ALT) 24 U/L (5-65); TOTAL PROTEIN 4.5 G/DL (6.0-8.5); TROPONIN I 0.03 NG/ML (<0.05)
[2017-03-30 14:59] LABS: BUN (BLOOD UREA NITROGEN) 39 MG/DL (6-23); CO2 (CARBON DIOXIDE) 26 MMOL/L (24-34); DIRECT BILIRUBIN < 0.1 MG/DL (0.0-0.4); SODIUM, SERUM 144 MMOL/L (135-148); TOTAL BILIRUBIN 0.1 MG/DL (0-1.2)
[2017-03-30 16:49] LABS: LACTATE 1.8 MMOL/L (0.3-2.4)
[2017-03-30 21:46] LABS: PROCALCITONIN 0.08 ng/mL (<0.5)
[2017-03-30 22:40] LABS: PHOSPHORUS, SERUM 2.6 MG/DL (2.5-4.5)
[2017-03-30 23:49] LABS: HEMATOCRIT 28.1 % (36.0-48.0); HEMOGLOBIN 9.5 g/dL (12.0-16.0)
[2017-03-31 04:49] LABS: ALBUMIN 2.2 G/DL (3.5-5.0); ALKALINE PHOSPHATASE 50 U/L (45-117); CALCIUM, SERUM 7.9 MG/DL (8.5-10.4); CHLORIDE, SERUM 109 MMOL/L (96-112); CO2 (CARBON DIOXIDE) 25 MMOL/L (24-34); CREATININE 0.65 MG/DL (0.55-1.02); GFR AFRICAN AMERICAN 92 ML/MIN (>=60); GFR NON AFRICAN AMERICAN 79 ML/MIN (>=60); GLOBULIN 2.3 G/DL (2.5-4.1); GLUCOSE, SERUM 97 MG/DL (60-99); PHOSPHORUS, SERUM 2.6 MG/DL (2.5-4.5); POTASSIUM, SERUM 4.2 MMOL/L (3.5-5.3); SGOT(AST) 20 U/L (5-40); SGPT(ALT) 21 U/L (5-65); SODIUM, SERUM 140 MMOL/L (135-148); TOTAL BILIRUBIN 0.4 MG/DL (0-1.2); TOTAL PROTEIN 4.5 G/DL (6.0-8.5)
[2017-03-31 04:50] LABS: BUN (BLOOD UREA NITROGEN) 26 MG/DL (6-23)
[2017-03-31 07:45] LABS: HEMATOCRIT 26.9 % (36.0-48.0); HEMOGLOBIN 9.1 g/dL (12.0-16.0)
[2017-03-31 13:23] LABS: BUN (BLOOD UREA NITROGEN) 23 MG/DL (6-23); CALCIUM, SERUM 8.1 MG/DL (8.5-10.4); CHLORIDE, SERUM 113 MMOL/L (96-112); CO2 (CARBON DIOXIDE) 22 MMOL/L (24-34); GFR AFRICAN AMERICAN 94 ML/MIN (>=60); GFR NON AFRICAN AMERICAN 81 ML/MIN (>=60); GLUCOSE, SERUM 83 MG/DL (60-99); SODIUM, SERUM 142 MMOL/L (135-148)
[2017-03-31 13:46] LABS: HEMATOCRIT 28.2 % (36.0-48.0); HEMOGLOBIN 9.3 g/dL (12.0-16.0)
[2017-03-31 17:39] LABS: HEMATOCRIT 29.2 % (36.0-48.0); HEMOGLOBIN 9.4 g/dL (12.0-16.0)
[2017-03-31 22:48] LABS: HEMATOCRIT 28.5 % (36.0-48.0); HEMOGLOBIN 9.3 g/dL (12.0-16.0)
[2017-04-01 06:14] LABS: CALCIUM, SERUM 7.8 MG/DL (8.5-10.4); CHLORIDE, SERUM 111 MMOL/L (96-112); CO2 (CARBON DIOXIDE) 25 MMOL/L (24-34); CREATININE 0.65 MG/DL (0.55-1.02); GFR AFRICAN AMERICAN 92 ML/MIN (>=60); GFR NON AFRICAN AMERICAN 79 ML/MIN (>=60); GLUCOSE, SERUM 78 MG/DL (60-99); POTASSIUM, SERUM 4.6 MMOL/L (3.5-5.3); SODIUM, SERUM 144 MMOL/L (135-148)
[2017-04-01 06:15] LABS: BUN (BLOOD UREA NITROGEN) 15 MG/DL (6-23)
[2017-04-01 16:06] LABS: HEMOGLOBIN 8.7 g/dL (12.0-16.0)
[2017-04-02 06:00] LABS: HEMATOCRIT 27.6 % (36.0-48.0); HEMOGLOBIN 8.9 g/dL (12.0-16.0); MEAN CORPUS HGB CONC 32.2 g/dL (32.0-36.0); MEAN CORPUSCULAR HEMOGLOB 30.4 pg (26.0-34.0); MEAN CORPUSCULAR VOLUME 94.2 fL (80-100); PLATELET COUNT 280 10/3/uL (150-400)
[2017-04-02 06:10] LABS: MANUAL DIFF YES %; RED CELL COUNT 2.93 10/6/uL (4.0-5.6); WHITE BLOOD CELLS 8.9 10/3/uL (4.5-10.5)
[2017-04-02 06:13] LABS: CALCIUM, SERUM 8.4 MG/DL (8.5-10.4); CHLORIDE, SERUM 105 MMOL/L (96-112); CREATININE 0.78 MG/DL (0.55-1.02); GFR AFRICAN AMERICAN 79 ML/MIN (>=60); GFR NON AFRICAN AMERICAN 68 ML/MIN (>=60); GLUCOSE, SERUM 90 MG/DL (60-99); SODIUM, SERUM 140 MMOL/L (135-148)
[2017-04-02 06:15] LABS: BUN (BLOOD UREA NITROGEN) 8 MG/DL (6-23); CO2 (CARBON DIOXIDE) 31 MMOL/L (24-34)
[2017-04-02 06:29] LABS: ANISOCYTOSIS 1+ (5-10/OIF) (0-5/OIF); BAND NEUTROPHILS 1 %; BASOPHILS 2 %; BASOPHILS ABSOLUTE (CALC) 0.18 10/3/uL (0.0-0.16); EOSINOPHILS 2 %; EOSINOPHILS ABSOLUTE (CALC) 0.18 10/3/uL (0.0-0.53); IMMATURE GRANS ABSOLUTE (CALC) 0.09 10/3/uL (0.0-0.11); LYMPHOCYTES 20 %; LYMPHOCYTES ABSOLUTE (CALC) 1.78 10/3/uL (0.67-4.30); METAMYELOCYTES 1 %; MONOCYTES 4 %; MONOCYTES ABSOLUTE (CALC) 0.36 10/3/uL (0.21-1.20); NEUTROPHILS ABSOLUTE (CALC) 6.32 10/3/uL (2.02-8.40); PLATELET ESTIMATE ADQ (ADEQUATE); SEGMENTED NEUTROPHIL (0) 70 %; TOTAL NUCLEATED CELLS 100
[2017-04-02 16:19] LABS: HEMATOCRIT 26.7 % (36.0-48.0); HEMOGLOBIN 8.5 g/dL (12.0-16.0)
[2017-04-02 20:08] LABS: HEMATOCRIT 27.7 % (36.0-48.0); HEMOGLOBIN 8.8 g/dL (12.0-16.0)
[2017-04-03 05:58] LABS: HEMOGLOBIN 7.9 g/dL (12.0-16.0)
[2017-04-03 06:01] LABS: HEMATOCRIT 24.4 % (36.0-48.0)
[2017-04-03 09:15] LABS: BASOPHILS 0.9 %; BASOPHILS ABSOLUTE 0.05 10/3/uL (0.0-0.16); EOSINOPHILS 4.8 %; EOSINOPHILS ABSOLUTE 0.28 10/3/uL (0.0-0.53); IMMATURE GRANULOCYTES 0.9 %; IMMATURE GRANULOCYTES ABSOLUTE 0.05 10/3/uL (0.0-0.11); LYMPHOCYTES 35.4 %; LYMPHOCYTES ABSOLUTE 2.06 10/3/uL (0.67-4.30); MEAN CORPUS HGB CONC 31.7 g/dL (32.0-36.0); MEAN CORPUSCULAR HEMOGLOB 30.8 pg (26.0-34.0); MONOCYTES 13.4 %; MONOCYTES ABSOLUTE 0.78 10/3/uL (0.21-1.20); NEUTROPHILS 44.6 %; PLATELET COUNT 298 10/3/uL (150-400); RBC DISTRIBUTION WIDTH 20.1 % (12.0-16.0); RED CELL COUNT 2.92 10/6/uL (4.0-5.6); WHITE BLOOD CELLS 5.8 10/3/uL (4.5-10.5)
[2017-04-03 09:16] LABS: HEMATOCRIT 28.4 % (36.0-48.0); MEAN CORPUSCULAR VOLUME 97.3 fL (80-100)
[2017-04-03 09:18] LABS: MANUAL DIFF NO %
[2017-04-03 17:05] LABS: HEMATOCRIT 29.8 % (36.0-48.0); HEMOGLOBIN 9.8 g/dL (12.0-16.0)
[2017-04-03 22:01] LABS: BASOPHILS 0.8 %; BASOPHILS ABSOLUTE 0.06 10/3/uL (0.0-0.16); EOSINOPHILS 4.4 %; EOSINOPHILS ABSOLUTE 0.32 10/3/uL (0.0-0.53); HEMATOCRIT 31.4 % (36.0-48.0); IMMATURE GRANULOCYTES ABSOLUTE 0.07 10/3/uL (0.0-0.11); LYMPHOCYTES 38.9 %; LYMPHOCYTES ABSOLUTE 2.81 10/3/uL (0.67-4.30); MANUAL DIFF NO %; MEAN CORPUS HGB CONC 31.8 g/dL (32.0-36.0); MEAN CORPUSCULAR HEMOGLOB 30.3 pg (26.0-34.0); MEAN CORPUSCULAR VOLUME 95.2 fL (80-100); MEAN PLATELET VOLUME 9.9 fL (9.2-13.0); MONOCYTES 15.4 %; MONOCYTES ABSOLUTE 1.11 10/3/uL (0.21-1.20); NEUTROPHILS 39.5 %; NEUTROPHILS ABSOLUTE 2.86 10/3/uL (2.02-8.40); PLATELET COUNT 289 10/3/uL (150-400); RBC DISTRIBUTION WIDTH 19.4 % (12.0-16.0); WHITE BLOOD CELLS 7.2 10/3/uL (4.5-10.5)
[2017-04-04 01:02] LABS: HEMATOCRIT 29.4 % (36.0-48.0); HEMOGLOBIN 9.6 g/dL (12.0-16.0)
[2017-04-04 06:33] LABS: BASOPHILS 0.9 %; BASOPHILS ABSOLUTE 0.05 10/3/uL (0.0-0.16); EOSINOPHILS 5.8 %; EOSINOPHILS ABSOLUTE 0.32 10/3/uL (0.0-0.53); HEMATOCRIT 31.2 % (36.0-48.0); IMMATURE GRANULOCYTES 0.9 %; IMMATURE GRANULOCYTES ABSOLUTE 0.05 10/3/uL (0.0-0.11); LYMPHOCYTES 37.2 %; LYMPHOCYTES ABSOLUTE 2.04 10/3/uL (0.67-4.30); MEAN CORPUS HGB CONC 32.1 g/dL (32.0-36.0); MEAN CORPUSCULAR HEMOGLOB 30.4 pg (26.0-34.0); MEAN CORPUSCULAR VOLUME 94.8 fL (80-100); MEAN PLATELET VOLUME 9.9 fL (9.2-13.0); MONOCYTES 15.3 %; MONOCYTES ABSOLUTE 0.84 10/3/uL (0.21-1.20); NEUTROPHILS 39.9 %; NEUTROPHILS ABSOLUTE 2.19 10/3/uL (2.02-8.40); PLATELET COUNT 273 10/3/uL (150-400); RBC DISTRIBUTION WIDTH 19.4 % (12.0-16.0); RED CELL COUNT 3.29 10/6/uL (4.0-5.6); WHITE BLOOD CELLS 5.5 10/3/uL (4.5-10.5)
[2017-04-04 06:36] LABS: MANUAL DIFF NO %
[2017-04-04 10:37] LABS: BASOPHILS 1.1 %; BASOPHILS ABSOLUTE 0.07 10/3/uL (0.0-0.16); EOSINOPHILS 4.4 %; EOSINOPHILS ABSOLUTE 0.29 10/3/uL (0.0-0.53); HEMATOCRIT 31.2 % (36.0-48.0); HEMOGLOBIN 10.2 g/dL (12.0-16.0); IMMATURE GRANULOCYTES 0.8 %; IMMATURE GRANULOCYTES ABSOLUTE 0.05 10/3/uL (0.0-0.11); LYMPHOCYTES ABSOLUTE 2.19 10/3/uL (0.67-4.30); MEAN CORPUS HGB CONC 32.7 g/dL (32.0-36.0); MEAN CORPUSCULAR HEMOGLOB 30.4 pg (26.0-34.0); MEAN CORPUSCULAR VOLUME 92.9 fL (80-100); MEAN PLATELET VOLUME 9.7 fL (9.2-13.0); MONOCYTES 15.4 %; MONOCYTES ABSOLUTE 1.02 10/3/uL (0.21-1.20); NEUTROPHILS 45.3 %; NEUTROPHILS ABSOLUTE 3.02 10/3/uL (2.02-8.40); PLATELET COUNT 305 10/3/uL (150-400); RBC DISTRIBUTION WIDTH 19.2 % (12.0-16.0); RED CELL COUNT 3.36 10/6/uL (4.0-5.6); WHITE BLOOD CELLS 6.6 10/3/uL (4.5-10.5)
[2017-04-04 10:41] LABS: MANUAL DIFF NO %
[2017-04-04 17:13] LABS: HEMATOCRIT 31.1 % (36.0-48.0); HEMOGLOBIN 9.9 g/dL (12.0-16.0)
[2017-04-04 23:40] LABS: BASOPHILS 0.5 %; BASOPHILS ABSOLUTE 0.03 10/3/uL (0.0-0.16); EOSINOPHILS 5.5 %; EOSINOPHILS ABSOLUTE 0.36 10/3/uL (0.0-0.53); HEMATOCRIT 30.1 % (36.0-48.0); HEMOGLOBIN 9.9 g/dL (12.0-16.0); IMMATURE GRANULOCYTES 0.6 %; IMMATURE GRANULOCYTES ABSOLUTE 0.04 10/3/uL (0.0-0.11); LYMPHOCYTES 42.3 %; LYMPHOCYTES ABSOLUTE 2.76 10/3/uL (0.67-4.30); MEAN CORPUS HGB CONC 32.9 g/dL (32.0-36.0); MEAN CORPUSCULAR HEMOGLOB 30.9 pg (26.0-34.0); MEAN CORPUSCULAR VOLUME 94.1 fL (80-100); MEAN PLATELET VOLUME 9.2 fL (9.2-13.0); MONOCYTES 12.1 %; MONOCYTES ABSOLUTE 0.79 10/3/uL (0.21-1.20); NEUTROPHILS ABSOLUTE 2.54 10/3/uL (2.02-8.40); PLATELET COUNT 305 10/3/uL (150-400); WHITE BLOOD CELLS 6.5 10/3/uL (4.5-10.5)
[2017-04-04 23:41] LABS: MANUAL DIFF NO %
[2017-04-05 06:59] LABS: BASOPHILS 0.9 %; BASOPHILS ABSOLUTE 0.05 10/3/uL (0.0-0.16); EOSINOPHILS 6.8 %; EOSINOPHILS ABSOLUTE 0.37 10/3/uL (0.0-0.53); HEMATOCRIT 30.6 % (36.0-48.0); HEMOGLOBIN 9.9 g/dL (12.0-16.0); IMMATURE GRANULOCYTES 0.9 %; IMMATURE GRANULOCYTES ABSOLUTE 0.05 10/3/uL (0.0-0.11); LYMPHOCYTES 47.2 %; LYMPHOCYTES ABSOLUTE 2.57 10/3/uL (0.67-4.30); MEAN CORPUS HGB CONC 32.4 g/dL (32.0-36.0); MEAN CORPUSCULAR HEMOGLOB 30.5 pg (26.0-34.0); MEAN CORPUSCULAR VOLUME 94.2 fL (80-100); MEAN PLATELET VOLUME 9.5 fL (9.2-13.0); MONOCYTES 13.1 %; MONOCYTES ABSOLUTE 0.71 10/3/uL (0.21-1.20); NEUTROPHILS 31.1 %; NEUTROPHILS ABSOLUTE 1.69 10/3/uL (2.02-8.40); PLATELET COUNT 304 10/3/uL (150-400); RBC DISTRIBUTION WIDTH 19.4 % (12.0-16.0); RED CELL COUNT 3.25 10/6/uL (4.0-5.6); WHITE BLOOD CELLS 5.4 10/3/uL (4.5-10.5)
[2017-04-05 07:01] LABS: MANUAL DIFF NO %
[2017-04-05 12:01] LABS: HEMATOCRIT 33.6 % (36.0-48.0); HEMOGLOBIN 10.8 g/dL (12.0-16.0)
[2017-04-05 18:07] LABS: HEMATOCRIT 36.8 % (36.0-48.0); HEMOGLOBIN 11.7 g/dL (12.0-16.0)
[2017-04-06 06:02] LABS: HEMOGLOBIN 10.4 g/dL (12.0-16.0)
[2017-04-06 06:03] LABS: HEMATOCRIT 32.6 % (36.0-48.0)
[2017-04-07 05:13] LABS: BASOPHILS 0.5 %; BASOPHILS ABSOLUTE 0.03 10/3/uL (0.0-0.16); EOSINOPHILS 6.2 %; EOSINOPHILS ABSOLUTE 0.39 10/3/uL (0.0-0.53); HEMATOCRIT 31.8 % (36.0-48.0); HEMOGLOBIN 10.2 g/dL (12.0-16.0); IMMATURE GRANULOCYTES 0.6 %; IMMATURE GRANULOCYTES ABSOLUTE 0.04 10/3/uL (0.0-0.11); LYMPHOCYTES ABSOLUTE 2.47 10/3/uL (0.67-4.30); MEAN CORPUS HGB CONC 32.1 g/dL (32.0-36.0); MEAN CORPUSCULAR HEMOGLOB 30.8 pg (26.0-34.0); MEAN CORPUSCULAR VOLUME 96.1 fL (80-100); MEAN PLATELET VOLUME 9.6 fL (9.2-13.0); MONOCYTES 17.7 %; MONOCYTES ABSOLUTE 1.12 10/3/uL (0.21-1.20); NEUTROPHILS ABSOLUTE 2.28 10/3/uL (2.02-8.40); PLATELET COUNT 325 10/3/uL (150-400); RBC DISTRIBUTION WIDTH 19.1 % (12.0-16.0); RED CELL COUNT 3.31 10/6/uL (4.0-5.6); WHITE BLOOD CELLS 6.3 10/3/uL (4.5-10.5)
[2017-04-07 05:14] LABS: MANUAL DIFF NO %
[2017-04-07 05:34] LABS: CALCIUM, SERUM 8.4 MG/DL (8.5-10.4); CHLORIDE, SERUM 105 MMOL/L (96-112); CO2 (CARBON DIOXIDE) 32 MMOL/L (24-34); CREATININE 0.71 MG/DL (0.55-1.02); GFR AFRICAN AMERICAN 88 ML/MIN (>=60); GFR NON AFRICAN AMERICAN 76 ML/MIN (>=60); GLUCOSE, SERUM 83 MG/DL (60-99); SODIUM, SERUM 142 MMOL/L (135-148)
[2017-04-07 05:36] LABS: BUN (BLOOD UREA NITROGEN) 14 MG/DL (6-23)
[2017-04-08 05:52] LABS: BASOPHILS 0.9 %; BASOPHILS ABSOLUTE 0.05 10/3/uL (0.0-0.16); EOSINOPHILS ABSOLUTE 0.38 10/3/uL (0.0-0.53); HEMATOCRIT 32.5 % (36.0-48.0); HEMOGLOBIN 10.2 g/dL (12.0-16.0); IMMATURE GRANULOCYTES 0.4 %; IMMATURE GRANULOCYTES ABSOLUTE 0.02 10/3/uL (0.0-0.11); LYMPHOCYTES 46.5 %; LYMPHOCYTES ABSOLUTE 2.53 10/3/uL (0.67-4.30); MEAN CORPUS HGB CONC 31.4 g/dL (32.0-36.0); MEAN CORPUSCULAR HEMOGLOB 30.4 pg (26.0-34.0); MEAN PLATELET VOLUME 9.2 fL (9.2-13.0); MONOCYTES 16.7 %; MONOCYTES ABSOLUTE 0.91 10/3/uL (0.21-1.20); NEUTROPHILS 28.5 %; NEUTROPHILS ABSOLUTE 1.55 10/3/uL (2.02-8.40); PLATELET COUNT 313 10/3/uL (150-400); RBC DISTRIBUTION WIDTH 18.9 % (12.0-16.0); RED CELL COUNT 3.35 10/6/uL (4.0-5.6); WHITE BLOOD CELLS 5.4 10/3/uL (4.5-10.5)
[2017-04-08 05:54] LABS: MANUAL DIFF NO %
[2017-06-12] MEDS ORDERED: LEVOTHYROXIN125 MCG PO (16:58)
[2017-06-12] MEDS ORDERED: NEUR600 PO (16:59)
[2017-06-12] MEDS ORDERED: PROTONIX PO (16:59)
[2017-06-12] MEDS ORDERED: ARICEPT10 PO (16:59)
[2017-06-12] MEDS ORDERED: CYMBALTA60 PO (16:59)
[2017-06-12] MEDS ORDERED: AUSTRALIAN DREAM TOP (17:00)
[2017-06-12] MEDS ORDERED: T PO (17:00)
== END 2017-04-08 16:31 | DRG 392 ==
LOC: ER 15:23 → IMCU 17:42 → 7NO 04-01 12:59
PROVIDERS: Emergency Medicine; Internal Medicine; Internal Medicine Gastroenterology; Nurse Practitioner Family
PROC: 0DJ08ZZ Inspection of Upper Intestinal Tract, Via Natural or Artificial Opening Endoscopic (ICD-10-PCS; 2017-04-01)
PROC: 30233N1 Transfusion of Nonautologous Red Blood Cells into Peripheral Vein, Percutaneous Approach (ICD-10-PCS; principal; 2017-04-03)
DX: K20.8 Other esophagitis (principal); K55.9 Vascular disorder of intestine, unspecified; F03.90 Unspecified dementia, unspecified severity, without behavioral disturbance, psychotic disturbance, mood disturbance, and anxiety; D62 Acute posthemorrhagic anemia; K22.8 Other specified diseases of esophagus; E03.9 Hypothyroidism, unspecified; R62.7 Adult failure to thrive; K28.9 Gastrojejunal ulcer, unspecified as acute or chronic, without hemorrhage or perforation; F41.9 Anxiety disorder, unspecified; F32.9 Major depressive disorder, single episode, unspecified; I69.398 Other sequelae of cerebral infarction
CPT/HCPCS: 36415; 36430; 71010; 74174; 80048; 80053; 80076; 81001; 82962; 83605; 83690; 83735; 84100; 84145; 84484; 85014; 85018; 85025; 85610; 85730; 86850; 86900; 86901; 86920; 87040; 93005; 96365; 96375; 97110-GP; 97116-GP; 97162-GP; 97165-GO; 97535-GO; 99291; A9270-GY; C9113; G8987-CK-GO; G8988-CJ-GO; J1170; J2405; J2543; J2550; J3475; P9016; Q9967